=== PATIENT | male | born 1955 | race Caucasian/White ===

== ENCOUNTER 2016-07-30 22:48 | Inpatient (IN) | payer BC ==
[~2016-07-30] VITALS: Ht 172.7 cm; Wt 99.8 kg
[2016-07-30] MEDS ORDERED: DiphenhydrAMINE 50mg/ml Inj IVP ONE (23:15)
[2016-07-30] MEDS ORDERED: Solu-MEDROL 125mg Inj IVP ONE (23:15)
[2016-07-30 23:30] VITALS: BP 102/55
[2016-07-30 23:41] LABS: MEAN CORPUSCULAR HEMOGLOBIN 29.9 PG (27.0-31.0); MEAN CORPUSCULAR HGB CONC 32.2 G/DL (32.0-36.0); MEAN CORPUSCULAR VOLUME 93 FL (80-99); PLATELET COUNT 214 K/UL (150-450); RED BLOOD COUNT 5.12 M/UL (4.70-6.10)
[2016-07-30 23:43] LABS: WHITE BLOOD COUNT 28.2 K/UL (4.8-10.8)
[2016-07-30] MEDS ORDERED: Morphine Sulfate 4mg/ml Inj IVP ONE (23:45)
[2016-07-30] MEDS ORDERED: metroNIDAZOLE 500mg 100 ML IVPB ONE (23:45)
[2016-07-30 23:55] LABS: TROPONIN I < 0.30 ng/mL (<=0.30)
[2016-07-30 23:59] LABS: ACETAMINOPHEN < 10 ug/mL (10-30); ALANINE AMINOTRANSFERASE 34 U/L (3-41); ALBUMIN/GLOBULIN RATIO 1.1 (1.0-2.7); ALCOHOL < 10 mg/dL; ANION GAP 22 (5-15); ASPARTATE AMINO TRANSFERASE 14 U/L (5-40); CALCIUM 7.8 mg/dL (8.6-10.2); CARBON DIOXIDE 16 mEQ/L (20-30); CHLORIDE 99 mEQ/L (98-107); CREATININE 1.2 mg/dL (0.7-1.2); GLOMERULAR FILTRATION RATE > 60 mL/min (>60); HEMOLYSIS 11; POTASSIUM 3.6 mEQ/L (3.4-4.9); SODIUM 137 mEQ/L (135-145); TOTAL PROTEIN 6.1 g/dL (6.6-8.7)
[2016-07-31] VITALS (11 sets, daily range): BP systolic 88–111; BP diastolic 54–61
[2016-07-31 00:07] LABS: REFLEX LACTIC ACID YES OR NO YES
[2016-07-31 00:16] LABS: BILIRUBIN,DIRECT 0.5 mg/dL (0.1-0.3)
[2016-07-31] MEDS ORDERED: Cefepime 1gm vial ONE (00:25)
[2016-07-31] MEDS ORDERED: fentaNYL 100 mcg/2 mL IV ONE (00:30)
[2016-07-31 01:02] LABS: BAND NEUTROPHILS % (MANUAL) 25 % (0-8); BASOPHILS % (MANUAL) 0 % (0-2); EOSINOPHILS % (MANUAL) 0 % (0-3); LYMPHOCYTES % (MANUAL) 1 % (20-45); NEUTROPHILS % (MANUAL) 72 % (45-75); PLATELET ESTIMATE ADEQUATE; PLATELET MORPHOLOGY NORMAL; TOTAL CELLS COUNTED 100
--- NOTE | 2016-07-31 01:58 | Emergency Room Report ---
History of Present Illness General Chief Complaint: General Complaint Source: Patient, Family Member, EMS Present Illness HPI Patient presents EMS after an episode of rigors flushed this dyspnea immediately followed after a second dose of Humira that he gave himself today. EMS felt he was having an anxiety attack. He's been complaining about abdominal pain and was admitted to [facility] last week. Apparently a CT scan was done and was negative. They gave him Solu-Medrol. He also was given an Rx for ciprofloxacin earlier today - but has not taken antibiotics for many months. He's been complaining about pain in his right lower quadrant that's 8-9/10 and constant. It does not radiate. He has been able to move his bowels with some mucous but no blood. No dysuria. No URI sy. Recent hip surgery. No swelling of calves or hemoptysis. Allergies: Coded Allergies: No Known Allergies (Unverified , 07/30/16) Patient History Past Medical History: see triage record Past Surgical History: other - hip surgery Social History: Denies: smoking Social History Narrative Reviewed Nursing Documentation: PMH: Agreed, PSxH: Agreed Nursing Documentation-PMH Past Medical History: No History, Except For Review of Systems All Other Systems: negative except mentioned in HPI Physical Exam Vital Signs Date Time Temp Pulse Resp B/P Pulse Ox O2 Delivery O2 Flow Rate FiO2 07/30/16 22:43 100.0 110 16 116/82 98 Room Air Sp02 EP Interpretation: reviewed, normal General Appearance: well appearing, no apparent distress, GCS 15 Head: normocephalic, atraumatic Eyes: bilateral eye PERRL, bilateral eye normal inspection ENT: dry mucus membranes - braces Neck: supple Respiratory: lungs clear, normal breath sounds Cardiovascular #1: tachycardia Cardiovascular #2: 2+ radial (R) Gastrointestinal: normal inspection, no mass, non-distended, no rebound, abnormal bowel sounds - decreased, tenderness - R lateral and RLQ Musculoskeletal: back normal, gait/station normal, normal range of motion Neurologic: alert, oriented x3, motor strength/tone normal, sensory intact, cerebellar normal, normal gait, speech normal Psychiatric: anxious Skin: warm/dry, other - slightly plethoric - L hip area not tender or with erythema Procedures Critical Care Time Critical Care Time Total time: 30 min bedside evaluation and treatment excludes procedures (EKG). Reason for critical care: SIRS/sepsis, abdominal pain, hypotension, possible anaphylaxis Possible complications: hypotension, hypertension, ME, shock, arrhythmias, metabolic acidosis, end organ damage, respiratory failure. Interventions: fluid bolus, tylenol, antibiotics, solumedrol Course: Patient presented with rigors and hypotension. Immediate evaluation and fluid resuscitation. Responded to fluids, tylenol and antibiotics. Repeated evaluations as patient had episode of rigors here (before definitive treatment begun). Discussion with family regarding etiology. CT evaluated. Patient improved but still with slightly low BP (no longer tachycardic) and minimal abdominal pain. Consultations: nursing staff, EMS, family Performed by: Dr. Angel Tolerated well condition = serious Medical Decision Making Diagnostic Impression: Primary Impression: Sepsis Qualified Codes: A41.9 - Sepsis, unspecified organism Additional Impression: Crohn's colitis Qualified Codes: K50.118 - Crohn's disease of large intestine with other complication ER Course Patient with rigors and fever after shot of Humira. Very complicated patient with recent admission. DDx: bacteremia, allergic reaction, anaphylaxis, exacerbation of Crohn's, vasovagal, postoperative infection (hip - exam against this) amongst others. Emergent treatment initialed with IV hydration/bolus and steroids and antibiotics. Responded with better blood pressure. Patient worked up with blood cultures and other labs. CT ordered. Consideration of epi, but BP better and this appears more infectious with fever. Patient had rigors here - he states this happened just after administration of benadryl IV (was almost exactly like what happened at home). BP was low. ABX had not been started. Bolused. Several re-evaluations. Patient improved after hydration and antibiotics. Repeat lactic acid normal. Clinically improves. Still with pain and BP slightly low (HR decreased). Admit [facility] Dr. Moreno. Laboratory Tests Test 07/30/16 23:00 07/30/16 23:20 07/30/16 23:30 07/31/16 03:30 Urine Opiates Screen Positive (NEGATIVE) H Urine Barbiturates Screen Negative (NEGATIVE) Phencyclidine (PCP) Screen Negative (NEGATIVE) Urine Amphetamines Screen Negative (NEGATIVE) Urine Benzodiazepines Screen Negative (NEGATIVE) Urine Cocaine Screen Negative (NEGATIVE) Urine Marijuana (THC) Screen Negative (NEGATIVE) White Blood Count 28.2 K/UL (4.8-10.8) *H Red Blood Count 5.12 M/UL (4.70-6.10) Hemoglobin 15.3 G/DL (14.2-18.0) Hematocrit 47.5 % (42.0-52.0) Mean Corpuscular Volume 93 FL (80-99) Mean Corpuscular Hemoglobin 29.9 PG (27.0-31.0) Mean Corpuscular Hemoglobin Concent 32.2 G/DL (32.0-36.0) Red Cell Distribution Width 13.0 % (11.6-14.8) Platelet Count 214 K/UL (150-450) Mean Platelet Volume 8.0 FL (6.5-10.1) Neutrophils (%) (Auto) % (45.0-75.0) Lymphocytes (%) (Auto) % (20.0-45.0) Monocytes (%) (Auto) % (1.0-10.0) Eosinophils (%) (Auto) % (0.0-3.0) Basophils (%) (Auto) % (0.0-2.0) Differential Total Cells Counted 100 Neutrophils % (Manual) 72 % (45-75) Lymphocytes % (Manual) 1 % (20-45) L Monocytes % (Manual) 2 % (1-10) Eosinophils % (Manual) 0 % (0-3) Basophils % (Manual) 0 % (0-2) Band Neutrophils 25 % (0-8) H Platelet Estimate Adequate Platelet Morphology Normal Red Blood Cell Morphology Normal Sodium Level 137 mEQ/L (135-145) Potassium Level 3.6 mEQ/L (3.4-4.9) Chloride Level 99 mEQ/L (98-107) Carbon Dioxide Level 16 mEQ/L (20-30) L Anion Gap 22 (5-15) H Blood Urea Nitrogen 21 mg/dL (7-23) Creatinine 1.2 mg/dL (0.7-1.2) Estimate Glomerular Filtration Rate > 60 mL/min (>60) Glucose Level 130 mg/dL (74-106) H Calcium Level 7.8 mg/dL (8.6-10.2) L Total Bilirubin 1.2 mg/dL (0.0-1.2) Direct Bilirubin 0.5 mg/dL (0.1-0.3) H Aspartate Amino Transferase (AST) 14 U/L (5-40) Alanine Aminotransferase (ALT) 34 U/L (3-41) Alkaline Phosphatase 130 U/L (40-129) H Total Creatine Kinase 35 U/L (38-174) L Troponin I < 0.30 ng/mL (<=0.30) Pro-B-Type Natriuretic Peptide 146 pg/mL (0-125) H Total Protein 6.1 g/dL (6.6-8.7) L Albumin 3.3 g/dL (3.5-5.2) L Globulin 2.8 g/dL Albumin/Globulin Ratio 1.1 (1.0-2.7) Thyroid Stimulating Hormone (TSH) 1.680 uIU/mL (0.300-4.500) Salicylates Level < 1 mg/dL (10-30) L Acetaminophen Level < 10 ug/mL (10-30) L Serum Alcohol < 10 mg/dL Lactic Acid Level 3.30 mmol/L (0.66-2.22) H 0.90 mmol/L (0.66-2.22) EKG Diagnostic Results Rate: normal Rhythm: NSR ST Segments: no acute changes Rhythm Strip Diag. Results EP Interpretation: yes Rhythm: NSR, no PVC's, no ectopy Chest X-Ray Diagnostic Results EP Interpretation: Yes Findings: no consolidation, no effusion, no pneumothorax, no acute cardiopulmonary disease Number of Views: 1 CT/MRI/US Diagnostic Results CT/MRI/US Diagnostic Results : Imaging Test Ordered: abd pelvis Impression colitis without appi. Non obstructing stone Last Vital Signs Date Time Temp Pulse Resp B/P Pulse Ox O2 Delivery O2 Flow Rate FiO2 07/31/16 06:30 58 17 88/55 97 Nasal Cannula 2.0 07/31/16 04:30 99.9 Status: improved Disposition: ADMITTED INPATIENT Condition: Serious Referrals: MARITA WESLEY M.D. (PCP) Quan Angel M.D. Jul 31, 2016 01:58
[2016-07-31] MEDS ORDERED: PREDNISONE20 MG ORAL (07:42)
[2016-07-31] MEDS ORDERED: HUMIRA40 MG/0.2 SUBQ (07:42)
[2016-07-31] MEDS ORDERED: GABAPENTIN100 MG ORAL (07:42)
[2016-07-31] MEDS ORDERED: ASPIRIN EC81 MG ORAL (07:42)
--- NOTE | 2016-07-31 09:32 | Diagnostic Imaging Report ---
Indications: Abdominal pain Technique: Continuous helical CT imaging of the abdomen and pelvis was performed with automatic exposure control following administration of nonionic IV contrast only, on a Siemens sensation [address] scanner. Axial, coronal, sagittal images were reconstructed at 5 mm slice thickness. No oral contrast was administered per requesting physician's order, despite no contraindications listed in either submitted clinical data or tech note.. CTDI volume(s): 18 mGy Total DLP: 1125 mGy-cm Findings: Comparison: None Lack of oral contrast limits evaluation of gastrointestinal tract. Multiple small bowel loops distended and fluid-filled with air-fluid levels and some fecalization. Anastomotic sutures/clips encircle the distended small bowel in the left midabdomen. Mild stranding and minimal fluid resides adjacent to a dilated small bowel loop in the right lower quadrant. There is relatively abrupt transition to nondilated small bowel in the same area, though some stranding appears to reside adjacent to one or more nondilated small bowel loops in the well. Distal/terminal ileum nondilated. Appendix short or resected, without acute inflammatory change. Air-fluid levels in colon. Multiple diverticula in left colon. Segment of sigmoid colon poorly distended, further limiting evaluation. No obvious mural thickening, extraluminal gas or loculated fluid collections identified. Circumscribed low-attenuation foci in both renal cortices, some too small to accurately characterize, others compatible with cysts. 3 mm calcific focus interpolar region right kidney. Multiple images through the lower pelvis degraded by artifact from right hip prosthesis. Distended urinary bladder demonstrates apparent mild mural thickening. Focal calcification within prostate gland. Left inguinal hernia contains only fat. Liver, partially contracted gallbladder, pancreas, spleen, adrenal glands, unopacified ureters, seminal vesicles, vascular structures, retroperitoneum, remainder of mesentery, remainder visualized abdominopelvic anatomy unremarkable. Irregular pleural-based linear densities and dependent portions both lung bases. Disc space narrowing with marginal osteophyte formation, vacuum phenomenon, facet hypertrophy lower lumbar spine.. IMPRESSION: Small bowel findings favor enteritis with ileus. Partial obstruction not excludable. No other evidence of acute abdominopelvic disease, with limitation as described. Subtle but potentially significant abnormalities the gastrointestinal tract may be missed. Repeat CT scan with full oral and IV contrast preparation recommended for more complete evaluation, as clinically indicated Nonobstructive right nephrolithiasis Bilateral renal cortical lesions likely all represent cysts, though smaller lesions too small to accurately characterize Questionable previous appendectomy Apparent thickening of urinary bladder wall--hypertrophy versus chronic cystitis Previous right hip arthroplasty Fat-containing left inguinal hernia Degenerative spondylosis Pulmonary bibasal subsegmental atelectasis This correlates with [facility] preliminary report.
[2016-07-31] MEDS ORDERED: Norco 5mg/325mg tab ORAL PRN ×2 (10:45→22:45)
[2016-07-31] MEDS ORDERED: PredniSONE 20mg tab ORAL SCH (11:15)
--- NOTE | 2016-07-31 11:38 | Consultation ---
History of Present Illness General Date patient seen: Jul 31, 2016 Chief Complaint: fever Referring physician: Dr Moreno Reason for Consultation: anaphyolaxic reaction Present Illness HPI 61 year old male with hx of crohn disease for > 25 years with mutliple previous GI surgeries, on Anabel, he was having some lower abdominal pain and some possible lower grade temperature for the last few days, then he presents EMS after an episode of rigors flushed skin and dyspnea immediately followed after a second dose of Humira that he gave himself today. Apparently a CT scan was done and was negative. They gave him Solu-Medrol and penicillin. He also was given an Rx for ciprofloxacin earlier - but has not taken antibiotics for many months. He's been complaining about pain in his right lower quadrant that's 8-9 10 and constant. Pt had leukocytosis and low grade temperature and admitted to [facility] for anaphylactic shock. Currently he is calmer and only c/o of lower abdominal pain. Allergies: Coded Allergies: No Known Allergies (Unverified , 07/30/16) Medication History Scheduled Adalimumab (Humira), 40 MG SUBQ Q14D, (Reported) Aspirin Ec* (Aspirin Ec*), 81 MG ORAL DAILY, (Reported) Gabapentin* (Gabapentin*), MG ORAL THREE TIMES A DAY, (Reported) Prednisone* (Prednisone*), 40 MG ORAL DAILY, (Reported) Patient History Healthcare decision maker Resuscitation status Full Code Advanced Directive on File Past Medical/Surgical History Past Medical/Surgical History: (1) Crohn's colitis Review of Systems All Other Systems: negative except mentioned in HPI Physical Exam General Appearance: WD/WN Lines, tubes and drains: peripheral HEENT: normocephalic, atraumatic Neck: non-tender, normal alignment Respiratory/Chest: chest wall non-tender, lungs clear Cardiovascular/Chest: normal peripheral pulses, normal rate Abdomen: normal bowel sounds, non tender Genitourinary/Rectal: normal genital exam, normal rectal exam Last 24 Hour Vital Signs Date Time Temp Pulse Resp B/P Pulse Ox O2 Delivery O2 Flow Rate FiO2 07/31/16 07:48 98.0 56 17 /55 97 Nasal Cannula 2.0 07/31/16 07:43 98.0 56 17 55 97 Nasal Cannula 2.0 07/31/16 06:30 58 17 88/55 97 Nasal Cannula 2.0 07/31/16 04:30 99.9 67 19 89/54 97 Nasal Cannula 2.0 07/31/16 02:30 100.0 71 22 99/60 95 Nasal Cannula 2.0 07/31/16 01:37 99.9 07/31/16 01:35 99.0 07/31/16 01:30 99.9 83 24 105/60 95 Nasal Cannula 2.0 07/31/16 01:07 99.9 07/30/16 23:30 99.9 95 24 102/55 96 Room Air 07/30/16 22:43 100.0 110 16 116/82 98 Room Air Intake and Output 07/30/16 07/31/16 19:00 07:00 Intake Total 2150 ml Output Total 400 ml Balance 1750 ml Intake IV Total 2150 ml Other 0 ml Output Urine Total 400 ml Laboratory Tests Test 07/30/16 23:00 07/30/16 23:20 07/30/16 23:30 07/31/16 03:30 Urine Opiates Screen Positive (NEGATIVE) H Urine Barbiturates Screen Negative (NEGATIVE) Phencyclidine (PCP) Screen Negative (NEGATIVE) Urine Amphetamines Screen Negative (NEGATIVE) Urine Benzodiazepines Screen Negative (NEGATIVE) Urine Cocaine Screen Negative (NEGATIVE) Urine Marijuana (THC) Screen Negative (NEGATIVE) White Blood Count 28.2 K/UL (4.8-10.8) *H Red Blood Count 5.12 M/UL (4.70-6.10) Hemoglobin 15.3 G/DL (14.2-18.0) Hematocrit 47.5 % (42.0-52.0) Mean Corpuscular Volume 93 FL (80-99) Mean Corpuscular Hemoglobin 29.9 PG (27.0-31.0) Mean Corpuscular Hemoglobin Concent 32.2 G/DL (32.0-36.0) Red Cell Distribution Width 13.0 % (11.6-14.8) Platelet Count 214 K/UL (150-450) Mean Platelet Volume 8.0 FL (6.5-10.1) Neutrophils (%) (Auto) % (45.0-75.0) Lymphocytes (%) (Auto) % (20.0-45.0) Monocytes (%) (Auto) % (1.0-10.0) Eosinophils (%) (Auto) % (0.0-3.0) Basophils (%) (Auto) % (0.0-2.0) Differential Total Cells Counted 100 Neutrophils % (Manual) 72 % (45-75) Lymphocytes % (Manual) 1 % (20-45) L Monocytes % (Manual) 2 % (1-10) Eosinophils % (Manual) 0 % (0-3) Basophils % (Manual) 0 % (0-2) Band Neutrophils 25 % (0-8) H Platelet Estimate Adequate Platelet Morphology Normal Red Blood Cell Morphology Normal Sodium Level 137 mEQ/L (135-145) Potassium Level 3.6 mEQ/L (3.4-4.9) Chloride Level 99 mEQ/L (98-107) Carbon Dioxide Level 16 mEQ/L (20-30) L Anion Gap 22 (5-15) H Blood Urea Nitrogen 21 mg/dL (7-23) Creatinine 1.2 mg/dL (0.7-1.2) Estimat Glomerular Filtration Rate > 60 mL/min (>60) Glucose Level 130 mg/dL (74-106) H Calcium Level 7.8 mg/dL (8.6-10.2) L Total Bilirubin 1.2 mg/dL (0.0-1.2) Direct Bilirubin 0.5 mg/dL (0.1-0.3) H Aspartate Amino Transf (AST/SGOT) 14 U/L (5-40) Alanine Aminotransferase (ALT/SGPT) 34 U/L (3-41) Alkaline Phosphatase 130 U/L (40-129) H Total Creatine Kinase 35 U/L (38-174) L Troponin I < 0.30 ng/mL (<=0.30) Pro-B-Type Natriuretic Peptide 146 pg/mL (0-125) H Total Protein 6.1 g/dL (6.6-8.7) L Albumin 3.3 g/dL (3.5-5.2) L Globulin 2.8 g/dL Albumin/Globulin Ratio 1.1 (1.0-2.7) Thyroid Stimulating Hormone (TSH) 1.680 uIU/mL (0.300-4.500) Salicylates Level < 1 mg/dL (10-30) L Acetaminophen Level < 10 ug/mL (10-30) L Serum Alcohol < 10 mg/dL Lactic Acid Level 3.30 mmol/L (0.66-2.22) H 0.90 mmol/L (0.66-2.22) Height (Feet): 5 Height (Inches): 8.00 Weight (Pounds): 220 Medications Current Medications Medications (Trade) Dose Ordered Sig/Sukhjinder Route PRN Reason Start Time Stop Time Status Last Admin Dose Admin Acetaminophen/ Hydrocodone Bitart (Sartell 5/325) 1 tab Q6H PRN ORAL FOR PAIN 1-10 07/31/16 10:45 08/07/16 10:44 Aspirin (ASA) 81 mg DAILY NG 08/01/16 12:00 08/31/16 11:59 Piperacillin Sod/ Tazobactam Sod/ Dextrose (Zosyn/D5W 100ml) 100 ml @ 25 mls/hr EVERY 8 HOURS IVPB 07/31/16 14:00 08/05/16 13:59 UNV Prednisone 40 mg 40 mg DAILY ORAL 07/31/16 11:15 08/30/16 11:14 Sodium Chloride (Sodium Chloride 1000ml bag) 1,000 ml @ 100 mls/hr Q10H IV 07/31/16 11:15 08/30/16 11:14 Assessment/Plan Problem List: (1) Anaphylactic reaction ICD Codes: T78.2XXA - Anaphylactic shock, unspecified, initial encounter SNOMED: 96232666 Qualifiers: Qualified Codes: T78.2XXA - Anaphylactic shock, unspecified, initial encounter (2) Sepsis ICD Codes: A41.9 - Sepsis, unspecified organism SNOMED: 90089793 Qualifiers: Qualified Codes: A41.9 - Sepsis, unspecified organism (3) Enteritis ICD Codes: K52.9 - Noninfective gastroenteritis and colitis, unspecified SNOMED: 64555897 (4) Crohn's colitis ICD Codes: K50.10 - Crohn's disease of large intestine without complications SNOMED: 24295978 Qualifiers: Qualified Codes: K50.112 - Crohn's disease of large intestine with intestinal obstruction Assessment/Plan IV fluids iv antibiotics GI and ID consult check cultures check wbc dvt prohylaxis ALICIA CHAVARRIA Jul 31, 2016 11:38
[2016-07-31] MEDS ORDERED: Lomotil 2.5mg tab ORAL PRN ×2 (11:45→17:45)
[2016-07-31] MEDS ORDERED: LORazepam 1mg tab ORAL PRN ×2 (11:45→19:45)
[2016-07-31] MEDS ORDERED: Morphine Sulfate 2mg/ml Inj IVP PRN ×3 (11:45→18:30)
[2016-07-31 11:55] LABS: MEAN CORPUSCULAR HGB CONC 33.2 G/DL (32.0-36.0); MEAN CORPUSCULAR VOLUME 91 FL (80-99); MEAN PLATELET VOLUME 9.7 FL (6.5-10.1); PLATELET COUNT 140 K/UL (150-450); RED BLOOD COUNT 4.01 M/UL (4.70-6.10); RED CELL DISTRIBUTION WIDTH 12.9 % (11.6-14.8); WHITE BLOOD COUNT 18.4 K/UL (4.8-10.8)
[2016-07-31 12:10] LABS: ALANINE AMINOTRANSFERASE 29 U/L (3-41); ALBUMIN/GLOBULIN RATIO 0.9 (1.0-2.7); ANION GAP 12 (5-15); ASPARTATE AMINO TRANSFERASE 15 U/L (5-40); CALCIUM 7.1 mg/dL (8.6-10.2); CARBON DIOXIDE 20 mEQ/L (20-30); CHLORIDE 110 mEQ/L (98-107); CREATININE 0.9 mg/dL (0.7-1.2); GLOMERULAR FILTRATION RATE > 60 mL/min (>60); HEMOLYSIS 3; MAGNESIUM 1.9 mg/dL (1.7-2.5); PHOSPHORUS 2.7 mg/dL (2.5-4.8); POTASSIUM 3.7 mEQ/L (3.4-4.9); SODIUM 142 mEQ/L (135-145); TOTAL PROTEIN 5.2 g/dL (6.6-8.7)
[2016-07-31 12:37] LABS: BAND NEUTROPHILS % (MANUAL) 2 % (0-8); LYMPHOCYTES % (MANUAL) 3 % (20-45); NEUTROPHILS % (MANUAL) 89 % (45-75); TOTAL CELLS COUNTED 100
[2016-07-31 12:38] LABS: BASOPHILS % (MANUAL) 0 % (0-2); EOSINOPHILS % (MANUAL) 0 % (0-3); PLATELET ESTIMATE ADEQUATE; PLATELET MORPHOLOGY NORMAL
--- NOTE | 2016-07-31 13:40 | Consultation ---
Consult Note Consult Note ID CONSULT: Mikaela# [id number] Assessment/Plan ASSESSMENT: 61 y/o male with: // Severe sepsis - resolved lactic acidosis, cultures pending. Risk atypical infection on biologics // Possible ADR humira // Cough r/o bronchitis, PNA - CXR pending - CT: Pulmonary bibasal subsegmental atelectasis // r/o UTI, bacteremia // h/o repeatedly negative QFT TB gold // Leukocytosis - improved // Low grade fever - improved // Crohn's disease, on humira ?exacerbated - CT A/P: Small bowel findings favor enteritis with ileus. Partial obstruction not excludable. No other evidence of acute abdominopelvic disease // Right non-obstructive nephrolithiasis // SP right DONAVON ~4 weeks - no evidence of infection // NKDA // Full Code PLAN: - continue empiric zosyn d# 1 - check coccidioides serology, UA, UCx - f/u cultures - monitor CBC, temperatures - monitor BMP - monitor CXR - GI eval Thanks! Will follow DARLIN HUNG Jul 31, 2016 13:39
--- NOTE | 2016-07-31 16:52 | GI Initial Consult Note ---
History of Present Illness General Date patient seen: Jul 31, 2016 Time patient seen: 13:00 Reason for Hospitalization: General Complaint Referring physician: Dr oMreno Reason for Consultation: anaphyolaxic reaction Present Illness HPI Patient presents EMS after an episode of rigors flushed this dyspnea immediately followed after a second dose of Humira that he gave himself today. He's been complaining about abdominal pain and was admitted to seizures last week. Apparently a CT scan was done and was negative. They gave him Solu- Medrol and penicillin. He also was given an Rx for ciprofloxacin earlier - but has not taken antibiotics for many months. He's been complaining about pain in his right lower quadrant that's 8-9/10 and constant. It does not radiate. GI NOTE: Initial HPI as noted above. GI consulted for anaphylactic reaction due to increased second dose of Crohn's medication. Pt seen on floor, awake A& Ox 4 NAD with no general symptoms or complaints at this time. This is a patient with history of Crohn's disease, follow by Dr. Mesa at [facility]. According to the patient he has been taking Humira for his Crohn's for the past 3 years. However, during this episode the patient was instructed to take a second dose of Humira which resulted as previously noted. CT shows enteritis with ileus, however, pt states he has been able to have BM and is passing flatus. Home Meds Reported Medications Gabapentin* (GABAPENTIN*) 100 Mg Capsule, MG ORAL THREE TIMES A DAY, CAP 07/31/16 Aspirin Ec* (ASPIRIN EC*) 81 Mg Tablet.dr, 81 MG ORAL DAILY, TAB 07/31/16 Prednisone* (PREDNISONE*) 20 Mg Tablet, 40 MG ORAL DAILY, TAB 07/31/16 Adalimumab (HUMIRA) 40 Mg/0.8 Ml Pen.ij.kit, 40 MG SUBQ Q14D, KIT 07/31/16 Med list reviewed/reconciled: Yes Allergies: Coded Allergies: No Known Allergies (Unverified , 07/30/16) Patient History History Provided By: Patient PMH Narrative Past Medical/Surgical History: (1) Crohn's colitis Social History: Denies: alcohol use, drug use, other, smoking Review of Systems All Other Systems: negative except mentioned in HPI Physical Exam Vital Signs Date Time Temp Pulse Resp B/P Pulse Ox O2 Delivery O2 Flow Rate FiO2 07/30/16 22:43 100.0 110 16 116/82 98 Room Air 07/31/16 01:30 2.0 Sp02 EP Interpretation: reviewed Labs Laboratory Tests Test 07/30/16 23:00 07/30/16 23:20 07/30/16 23:30 07/31/16 03:30 Urine Opiates Screen Positive (NEGATIVE) H Urine Barbiturates Screen Negative (NEGATIVE) Phencyclidine (PCP) Screen Negative (NEGATIVE) Urine Amphetamines Screen Negative (NEGATIVE) Urine Benzodiazepines Screen Negative (NEGATIVE) Urine Cocaine Screen Negative (NEGATIVE) Urine Marijuana (THC) Screen Negative (NEGATIVE) White Blood Count 28.2 K/UL (4.8-10.8) *H Red Blood Count 5.12 M/UL (4.70-6.10) Hemoglobin 15.3 G/DL (14.2-18.0) Hematocrit 47.5 % (42.0-52.0) Mean Corpuscular Volume 93 FL (80-99) Mean Corpuscular Hemoglobin 29.9 PG (27.0-31.0) Mean Corpuscular Hemoglobin Concent 32.2 G/DL (32.0-36.0) Red Cell Distribution Width 13.0 % (11.6-14.8) Platelet Count 214 K/UL (150-450) Mean Platelet Volume 8.0 FL (6.5-10.1) Neutrophils (%) (Auto) % (45.0-75.0) Lymphocytes (%) (Auto) % (20.0-45.0) Monocytes (%) (Auto) % (1.0-10.0) Eosinophils (%) (Auto) % (0.0-3.0) Basophils (%) (Auto) % (0.0-2.0) Differential Total Cells Counted 100 Neutrophils % (Manual) 72 % (45-75) Lymphocytes % (Manual) 1 % (20-45) L Monocytes % (Manual) 2 % (1-10) Eosinophils % (Manual) 0 % (0-3) Basophils % (Manual) 0 % (0-2) Band Neutrophils 25 % (0-8) H Platelet Estimate Adequate Platelet Morphology Normal Red Blood Cell Morphology Normal Sodium Level 137 mEQ/L (135-145) Potassium Level 3.6 mEQ/L (3.4-4.9) Chloride Level 99 mEQ/L (98-107) Carbon Dioxide Level 16 mEQ/L (20-30) L Anion Gap 22 (5-15) H Blood Urea Nitrogen 21 mg/dL (7-23) Creatinine 1.2 mg/dL (0.7-1.2) Estimat Glomerular Filtration Rate > 60 mL/min (>60) Glucose Level 130 mg/dL (74-106) H Calcium Level 7.8 mg/dL (8.6-10.2) L Total Bilirubin 1.2 mg/dL (0.0-1.2) Direct Bilirubin 0.5 mg/dL (0.1-0.3) H Aspartate Amino Transf (AST/SGOT) 14 U/L (5-40) Alanine Aminotransferase (ALT/SGPT) 34 U/L (3-41) Alkaline Phosphatase 130 U/L (40-129) H Total Creatine Kinase 35 U/L (38-174) L Troponin I < 0.30 ng/mL (<=0.30) Pro-B-Type Natriuretic Peptide 146 pg/mL (0-125) H Total Protein 6.1 g/dL (6.6-8.7) L Albumin 3.3 g/dL (3.5-5.2) L Globulin 2.8 g/dL Albumin/Globulin Ratio 1.1 (1.0-2.7) Thyroid Stimulating Hormone (TSH) 1.680 uIU/mL (0.300-4.500) Salicylates Level < 1 mg/dL (10-30) L Acetaminophen Level < 10 ug/mL (10-30) L Serum Alcohol < 10 mg/dL Lactic Acid Level 3.30 mmol/L (0.66-2.22) H 0.90 mmol/L (0.66-2.22) Test 07/31/16 11:20 White Blood Count 18.4 K/UL (4.8-10.8) H Red Blood Count 4.01 M/UL (4.70-6.10) L Hemoglobin 12.0 G/DL (14.2-18.0) L Hematocrit 36.3 % (42.0-52.0) L Mean Corpuscular Volume 91 FL (80-99) Mean Corpuscular Hemoglobin 30.0 PG (27.0-31.0) Mean Corpuscular Hemoglobin Concent 33.2 G/DL (32.0-36.0) Red Cell Distribution Width 12.9 % (11.6-14.8) Platelet Count 140 K/UL (150-450) L Mean Platelet Volume 9.7 FL (6.5-10.1) Neutrophils (%) (Auto) % (45.0-75.0) Lymphocytes (%) (Auto) % (20.0-45.0) Monocytes (%) (Auto) % (1.0-10.0) Eosinophils (%) (Auto) % (0.0-3.0) Basophils (%) (Auto) % (0.0-2.0) Differential Total Cells Counted 100 Neutrophils % (Manual) 89 % (45-75) H Lymphocytes % (Manual) 3 % (20-45) L Monocytes % (Manual) 6 % (1-10) Eosinophils % (Manual) 0 % (0-3) Basophils % (Manual) 0 % (0-2) Band Neutrophils 2 % (0-8) Platelet Estimate Adequate Platelet Morphology Normal Red Blood Cell Morphology Normal Sodium Level 142 mEQ/L (135-145) Potassium Level 3.7 mEQ/L (3.4-4.9) Chloride Level 110 mEQ/L (98-107) H Carbon Dioxide Level 20 mEQ/L (20-30) Anion Gap 12 (5-15) Blood Urea Nitrogen 23 mg/dL (7-23) Creatinine 0.9 mg/dL (0.7-1.2) Estimat Glomerular Filtration Rate > 60 mL/min (>60) Glucose Level 137 mg/dL (74-106) H Calcium Level 7.1 mg/dL (8.6-10.2) L Phosphorus Level 2.7 mg/dL (2.5-4.8) Magnesium Level 1.9 mg/dL (1.7-2.5) Total Bilirubin 0.4 mg/dL (0.0-1.2) Aspartate Amino Transf (AST/SGOT) 15 U/L (5-40) Alanine Aminotransferase (ALT/SGPT) 29 U/L (3-41) Alkaline Phosphatase 66 U/L (40-129) Total Protein 5.2 g/dL (6.6-8.7) L Albumin 2.5 g/dL (3.5-5.2) L Globulin 2.7 g/dL Albumin/Globulin Ratio 0.9 (1.0-2.7) L General Appearance: well appearing, no apparent distress, alert Head: normocephalic EENT: normal ENT inspection Neck: supple Respiratory: normal breath sounds, no respiratory distress Cardiovascular: normal rate Gastrointestinal: normal inspection, non tender, soft, normal bowel sounds Rectal: normal exam Genitourinary: no CVA tenderness Musculoskeletal: back normal Neurologic: normal inspection, alert, oriented x3, responsive Psychiatric: normal inspection, judgement/insight normal, memory normal Skin: normal inspection, normal color, no rash Lymphatic: normal inspection, no adenopathy Current Medications Current Medications Medications (Trade) Dose Ordered Sig/Sukhjinder Route PRN Reason Start Time Stop Time Status Last Admin Dose Admin Acetaminophen (Tylenol) 650 mg Q4H PRN ORAL FEVER 07/31/16 11:45 08/30/16 11:44 Acetaminophen (Tylenol) 650 mg Q4H PRN ORAL Mild Pain (Pain Scale 1-3) 07/31/16 11:45 08/30/16 11:44 Acetaminophen/ Hydrocodone Bitart ([place] 5/325) 1 tab Q6H PRN ORAL FOR PAIN 1-10 07/31/16 10:45 08/07/16 10:44 Aspirin (ASA) 81 mg DAILY NG 08/01/16 12:00 08/31/16 11:59 Diphenhydramine HCl (Benadryl) 25 mg Q6H PRN ORAL Itching/Pruritis 07/31/16 11:45 08/30/16 11:44 Diphenoxylate HCl/ Atropine (Lomotil) 2.5 mg Q6H PRN ORAL Diarrhea 07/31/16 11:45 08/30/16 11:44 Lorazepam (Ativan) 1 mg Q4H PRN ORAL For Anxiety 07/31/16 11:45 08/07/16 11:44 Morphine Sulfate (Morphine Sulfate) 2 mg Q6H PRN IVP 4-6 PAIN UNRESPONSIVE TO NORCO 07/31/16 12:28 08/07/16 11:44 Ondansetron HCl (Zofran) 4 mg Q6H PRN IVP Nausea & Vomiting 07/31/16 11:45 08/30/16 11:44 Piperacillin Sod/ Tazobactam Sod/ Dextrose (Zosyn/D5W 100ml) 100 ml @ 25 mls/hr EVERY 8 HOURS IVPB 07/31/16 14:00 08/05/16 13:59 07/31/16 14:10 Prednisone 40 mg 40 mg DAILY ORAL 07/31/16 11:15 08/30/16 11:14 07/31/16 12:10 Sodium Chloride (Sodium Chloride 1000ml bag) 1,000 ml @ 100 mls/hr Q10H IV 07/31/16 11:15 08/30/16 11:14 07/31/16 12:09 Temazepam (Restoril) 15 mg HSPRN PRN ORAL Insomnia 07/31/16 11:45 08/07/16 11:44 GI: Plan Problems: (1) Crohn's colitis (2) Enteritis (3) Anaphylactic reaction (4) Sepsis Plan AP CT >> enteritis with ileus >> pt reported to have BM and passing gas diarrhea >> crohn's flare Humira given once every two weeks. -------- patient will not require any GI procedures at this time symptomatic treatment pain mgmt abx per ID H2 fu labs Discussed with Dr. Olmedo. Thank you for referring this patient, we will follow. Lucía Ruiz N.P. Jul 31, 2016 16:52
[2016-07-31 17:00] LABS: APPEARANCE,URINE CLEAR; KETONES,URINE 1+ (NEGATIVE); LEUKOCYTE ESTERASE ,URINE 1+ (NEGATIVE); NITRITE,URINE NEGATIVE (NEGATIVE); PH,URINE 6 (4.5-8.0); PROTEIN,URINE 2+ (NEGATIVE); UROBILINOGEN,URINE NORMAL MG/DL (0.0-1.0)
[2016-07-31 17:51] LABS: AMORPHOUS SEDIMENT,UR FEW /LPF; BACTERIA,URINE FEW /HPF; RBC,URINE 0-2 /HPF (0 - 0)
--- NOTE | 2016-07-31 18:36 | History & Physical ---
History and Physical History & Physicial Dictated for Int Med-Dr Moreno no. [id number]. LINA COVINGTON Jul 31, 2016 18:36
--- NOTE | 2016-07-31 20:13 | Cardiology Report ---
APPROVED REPORT EKG Measurement Heart [id number] Normal sinus rhythm Nonspecific ST abnormality Abnormal ECG
--- NOTE | 2016-07-31 21:48 | Consultation ---
DATE OF CONSULTATION: 07/31/2016 INFECTIOUS DISEASE CONSULTATION REQUESTING PHYSICIAN: Bakari Moreno M.D. REASON FOR CONSULTATION: Severe sepsis. HISTORY OF PRESENT ILLNESS: This is a 61-year-old male with a history of Crohn disease, on Humira, admitted on 07/30/2015 with abdominal pain and flushing after taking an extra dose of Humira as directed by his gastrointestinal physician. A CT of the abdomen and pelvis shows small bowel findings favoring enteritis with ileus, partial obstruction not excludable. No other evidence of acute abdominal pelvic disease. Also, complains of nonproductive cough. Denies headache, congestion, or dysuria. He meets severe sepsis criteria. White blood cell count is trending down. Lactic acidosis has resolved and low-grade fever at 100. Blood culture is pending. He has been started on empiric Zosyn. ID now consulted to assist in management. PAST MEDICAL HISTORY: 1. Crohn disease, on Humira. 2. Kidney stones. 3. Left inguinal hernia. PAST SURGICAL HISTORY: 1. Right total hip arthroplasty. 2. Multiple bowel surgeries. FAMILY HISTORY: Noncontributory. SOCIAL HISTORY: Denies tobacco, alcohol, or illicit drug abuse. ALLERGIES: No known drug allergies. MEDICATIONS: 1. Zosyn. 2. Prednisone. 3. Aspirin. 4. Outpatient Humira. REVIEW OF SYSTEMS: As per history of present illness. Ten systems reviewed, all pertinent positives and negatives noted. PHYSICAL EXAMINATION: VITAL SIGNS: Maximum temperature of 100 degrees, blood pressure 91/59, heart rate in the 50s, respiratory rate 20, and saturating 99% on room air. GENERAL: No apparent distress, nontoxic appearing. HEENT: No thrush. CARDIOVASCULAR: Regular rate and rhythm. No murmurs. PULMONARY: Clear to auscultation bilaterally. ABDOMEN: Bowel sounds present. Soft. Mild distention and tenderness to deep palpation. EXTREMITIES: No edema. SKIN: No rash. NEUROLOGICAL: Alert and oriented x3. Nonfocal. LABORATORY DATA: White blood cell count 18.4, decreased from 28.2 with left shift; hemoglobin 12, and platelets 140,000. Sodium 142, potassium 3.7, chloride 110, bicarbonate 20, BUN 23, and creatinine 0.9. Lactic acid 3.3, decreased to 0.9. Liver function tests within normal limits. Troponin negative x1. BNP 146. Urine drug screen positive for opiates. MICROBIOLOGY: A 07/30/2016 blood culture pending. IMAGIN. A 07/30/2016 chest x-ray pending. 2. A 07/31/2016 CT of the abdomen and pelvis with small bowel findings favoring enteritis with ileus. Partial obstruction not excludable. No other evidence of acute abdominal pelvic disease. Nonobstructive right nephrolithiasis. Bilateral renal cortical lesions, likely all represent cysts. Previous right hip arthroplasty. Fat containing left inguinal hernia. ASSESSMENT: 1. Severe sepsis with lactic acidosis, now resolved. Cultures are pending. Risk of atypical infections on biologics. 2. Possible adverse drug reaction to Humira. 3. Cough, rule out bronchitis and pneumonia. Chest x-ray is pending. the patient's CAT scan showed bibasilar atelectasis. 4. Rule out urinary tract infection and bacteremia. 5. 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 6. Leukocytosis, improved. 7. Low-grade fever, improved. 8. Crohn's disease, on Humira, question exacerbated. CT as above. 9. Right nonobstructive nephrolithiasis. 10. Status post right total hip arthroplasty approximately four weeks ago with no evidence of infection. 11. No known drug allergies. 12. Full Code. PLAN: 1. Continue empiric Zosyn day #1. 2. Check Coccidioides serology, urinalysis, and urine culture. 3. Follow up blood cultures. 4. Monitor CBC and temperatures. 5. Monitor BMP. 6. Monitor chest x-ray. 7. Gastrointestinal evaluation. Thank you. We will follow. Osmin Valdez M.D. DR: MOISES JOB#: [id number] CC: Bakari Moreno M.D.; Fax#: [phone] Blanc M.D; Fax#: [phone]
--- NOTE | 2016-07-31 23:27 | History and Physical Report ---
DATE OF ADMISSION: 07/30/2016 CHIEF COMPLAINT: The patient is a 61-year-old white male, who presents with chief complaint of hot flashes and chills. HISTORY OF PRESENT ILLNESS: The patient has a history of Crohn's disease. The patient states his dose of Humira was just increased to two injections daily. The patient states after his second injection Humira he began to have hot flashes. The patient also had chills. The patient denied shortness of breath or throat swelling. The patient presented to [facility]. The patient was initially admitted for possible anaphylaxis to Humira. The patient was found to have lactic acidosis. The patient was also found to have leukocytosis. The patient was admitted for lactic acidosis and leukocytosis to rule out sepsis. PAST MEDICAL HISTORY: Significant for Crohn's disease. PAST SURGICAL HISTORY: Significant for bowel resection x2 secondary to Crohn disease. CURRENT MEDICATIONS: 1. Humira 40 mg subcutaneous q.2 weeks. 2. Aspirin 81 mg one tablet p.o. daily. 3. Gabapentin 100 mg one tablet p.o. three times daily. 4. Prednisone 40 mg one tablet p.o. daily. ALLERGIES: No known drug allergies. 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 The patient denies tobacco use. The patient admits to social alcohol use. REVIEW OF SYSTEMS: Constitutional: The patient complains of subjective fevers and chills and hot flashes as above. The patient denies weight loss or weight gain. HEENT: The patient denies ear or throat pain. The patient denies any headache. Cardiovascular: The patient denies palpitations or chest pain. Chest: The patient denies wheezing or shortness of breath. Abdomen: The patient denies nausea, vomiting, diarrhea, or constipation. Genitourinary: The patient denies dysuria or increased frequency of urination. Neuromuscular: The patient denies seizures or generalized weakness. PHYSICAL EXAMINATION: VITAL SIGNS: Temperature 98.0, respirations 17, pulse 56, blood pressure 91/55. GENERAL: The patient is well developed and well nourished slightly obese white male, in no apparent distress. HEENT: Eyes, pupils are equal and responsive to light and accommodation. Extraocular movements are intact. NECK: Supple. No lymphadenopathy. CHEST: Lungs are clear to auscultation bilaterally without wheezes or rales. CARDIOVASCULAR: Regular rhythm and rate. S1 and S2 normal without murmurs, rubs, or gallops. ABDOMEN: Soft, nontender, and nondistended. Positive bowel sounds. No evidence of hepatosplenomegaly. Currently, no rebound or guarding. EXTREMITIES: Negative for clubbing, cyanosis, or or edema. RECTAL: Refused. GENITALIA: Refused. NEUROLOGIC: Cranial nerves II through XII are grossly intact without focal deficits. Motor strength is 5/5 bilaterally. Deep tendon reflexes 2+ plantar. LABORATORY AND DIAGNOSTIC DATA: WBC elevated at 28.2, hemoglobin 15.2, hematocrit 47.5, platelets 214,000. Sodium 137, potassium 3.6, chloride 99, CO2 16, BUN 29, creatinine 1.2, glucose 130. Lactic acid was elevated. ASSESSMENT: This is a 61-year-old white male: 1. Lactic acidosis. 2. Leukocytosis. 3. Crohn disease. TREATMENT: 1. Lactic acidosis/leukocytosis, possibility of sepsis is high in a patient receiving Humira. The patient has been started empirically on Zosyn. An Infectious Disease consultation is pending with Dr. Osmin Valdez. Blood cultures are pending. We will follow recommendation of Infectious Disease. 2. Crohn disease. Gastroenterology consultation obtained with Dr. Gerardo Olmedo. Continue prednisone as above. Hold Humira for now. Elvis Avina M.D. DR: Mary JOB#: [id number] CC:
[2016-08-01] VITALS: BP 94/55
[2016-08-01 04:00] VITALS: BP 94/54
[2016-08-01 07:22] LABS: MEAN CORPUSCULAR HEMOGLOBIN 30.1 PG (27.0-31.0); MEAN CORPUSCULAR VOLUME 91 FL (80-99); PLATELET COUNT 120 K/UL (150-450); RED BLOOD COUNT 3.88 M/UL (4.70-6.10); RED CELL DISTRIBUTION WIDTH 12.9 % (11.6-14.8)
[2016-08-01 07:24] LABS: ALANINE AMINOTRANSFERASE 26 U/L (3-41); ALBUMIN/GLOBULIN RATIO 0.8 (1.0-2.7); ANION GAP 8 (5-15); ASPARTATE AMINO TRANSFERASE 16 U/L (5-40); CALCIUM 7.2 mg/dL (8.6-10.2); CARBON DIOXIDE 24 mEQ/L (20-30); CHLORIDE 108 mEQ/L (98-107); GLOMERULAR FILTRATION RATE > 60 mL/min (>60); HEMOLYSIS 6; MAGNESIUM 2.1 mg/dL (1.7-2.5); PHOSPHORUS 2.3 mg/dL (2.5-4.8); POTASSIUM 4.3 mEQ/L (3.4-4.9); SODIUM 140 mEQ/L (135-145); TOTAL PROTEIN 4.9 g/dL (6.6-8.7)
[2016-08-01 07:55] LABS: BAND NEUTROPHILS % (MANUAL) 0 % (0-8); BASOPHILS % (MANUAL) 0 % (0-2); EOSINOPHILS % (MANUAL) 0 % (0-3); LYMPHOCYTES % (MANUAL) 7 % (20-45); NEUTROPHILS % (MANUAL) 88 % (45-75); PLATELET ESTIMATE DECREASED; PLATELET MORPHOLOGY NORMAL; TOTAL CELLS COUNTED 100
[2016-08-01 08:00] VITALS: BP 109/78
[2016-08-01] MEDS: Aspirin Baby 81mg NG SCH (09:01)
[2016-08-01] MEDS: PredniSONE 20mg tab ORAL SCH (09:02)
[2016-08-01] MEDS ORDERED: Aspirin Baby 81mg NG SCH (12:00)
--- NOTE | 2016-08-01 12:01 | GI Progress Note ---
Assessment/Plan Problems: (1) Crohn's colitis ICD Codes: K50.10 - Crohn's disease of large intestine without complications SNOMED: 94899594 Qualifiers: Qualified Codes: K50.118 - Crohn's disease of large intestine with other complication (2) Anaphylactic reaction ICD Codes: T78.2XXA - Anaphylactic shock, unspecified, initial encounter SNOMED: 30573793 Qualifiers: Qualified Codes: T78.2XXA - Anaphylactic shock, unspecified, initial encounter (3) Enteritis ICD Codes: K52.9 - Noninfective gastroenteritis and colitis, unspecified SNOMED: [id number] Status: stable, progressing Status Narrative Discussed with Dr. Olmedo. Assessment/Plan AP CT >> enteritis with ileus >> pt reported to have BM and passing gas diarrhea >> crohn's flare Crohn's medication Humira given once every two weeks. -------- symptomatic treatment pain mgmt abx per ID regular diet H2 fu labs Subjective Gastrointestinal/Abdominal: Reports: abdominal pain - improved Objective Last 24 Hour Vital Signs Date Time Temp Pulse Resp B/P Pulse Ox O2 Delivery O2 Flow Rate FiO2 08/01/16 08:00 97.0 51 18 109/78 97 Room Air 08/01/16 04:00 97.1 52 17 94/54 95 Room Air 08/01/16 00:00 98.1 51 17 94/55 95 Room Air 07/31/16 20:00 95.0 51 14 90/61 95 Room Air 07/31/16 18:50 98.2 57 18 98/61 96 Room Air 07/31/16 16:10 97.2 48 18 111/54 96 Room Air 07/31/16 12:00 42 07/31/16 12:00 97.7 52 20 91/59 99 Room Air Intake and Output 07/31/16 08/01/16 18:59 06:59 Intake Total 1520 ml 925 ml Output Total 300 ml Balance 1220 ml 925 ml Intake Oral 120 ml 300 ml IV Total 1400 ml 625 ml Output Urine Total 300 ml # Voids 2 # Bowel Movements 1 2 Laboratory Tests Test 07/31/16 16:10 08/01/16 05:55 Urine Color Yellow Urine Appearance Clear Urine pH 6 (4.5-8.0) Urine Specific [facility] 1.020 (1.005-1.035) Urine Protein 2+ (NEGATIVE) H Urine Glucose (UA) Negative (NEGATIVE) Urine Ketones 1+ (NEGATIVE) H Urine Occult Blood 1+ (NEGATIVE) H Urine Nitrite Negative (NEGATIVE) Urine Bilirubin Negative (NEGATIVE) Urine Urobilinogen Normal MG/DL (0.0-1.0) Urine Leukocyte Esterase 1+ (NEGATIVE) H Urine RBC 0-2 /HPF (0 - 0) H Urine WBC 2-4 /HPF (0 - 0) Urine Squamous Epithelial Cells None /LPF (NONE/OCC) Urine Amorphous Sediment Few /LPF (NONE) H Urine Bacteria Few /HPF (NONE) White Blood Count 17.0 K/UL (4.8-10.8) H Red Blood Count 3.88 M/UL (4.70-6.10) L Hemoglobin 11.7 G/DL (14.2-18.0) L Hematocrit 35.4 % (42.0-52.0) L Mean Corpuscular Volume 91 FL (80-99) Mean Corpuscular Hemoglobin 30.1 PG (27.0-31.0) Mean Corpuscular Hemoglobin Concent 33.0 G/DL (32.0-36.0) Red Cell Distribution Width 12.9 % (11.6-14.8) Platelet Count 120 K/UL (150-450) L Mean Platelet Volume 9.0 FL (6.5-10.1) Neutrophils (%) (Auto) % (45.0-75.0) Lymphocytes (%) (Auto) % (20.0-45.0) Monocytes (%) (Auto) % (1.0-10.0) Eosinophils (%) (Auto) % (0.0-3.0) Basophils (%) (Auto) % (0.0-2.0) Differential Total Cells Counted 100 Neutrophils % (Manual) 88 % (45-75) H Lymphocytes % (Manual) 7 % (20-45) L Monocytes % (Manual) 5 % (1-10) Eosinophils % (Manual) 0 % (0-3) Basophils % (Manual) 0 % (0-2) Band Neutrophils 0 % (0-8) Platelet Estimate Decreased L Platelet Morphology Normal Red Blood Cell Morphology Normal Sodium Level 140 mEQ/L (135-145) Potassium Level 4.3 mEQ/L (3.4-4.9) Chloride Level 108 mEQ/L (98-107) H Carbon Dioxide Level 24 mEQ/L (20-30) Anion Gap 8 (5-15) Blood Urea Nitrogen 23 mg/dL (7-23) Creatinine 1.0 mg/dL (0.7-1.2) Estimat Glomerular Filtration Rate > 60 mL/min (>60) Glucose Level 137 mg/dL (74-106) H Calcium Level 7.2 mg/dL (8.6-10.2) L Phosphorus Level 2.3 mg/dL (2.5-4.8) L Magnesium Level 2.1 mg/dL (1.7-2.5) Total Bilirubin 0.3 mg/dL (0.0-1.2) Aspartate Amino Transf (AST/SGOT) 16 U/L (5-40) Alanine Aminotransferase (ALT/SGPT) 26 U/L (3-41) Alkaline Phosphatase 57 U/L (40-129) Total Protein 4.9 g/dL (6.6-8.7) L Albumin 2.3 g/dL (3.5-5.2) L Globulin 2.6 g/dL Albumin/Globulin Ratio 0.8 (1.0-2.7) L Coccidioides Antibody (Comp Fix) Pending Microbiology Date/Time Source Procedure Growth Status 07/31/16 16:10 Urine,Clean Catch Urine Culture - Preliminary NO GROWTH Resulted Height (Feet): 5 Height (Inches): 8.00 Weight (Pounds): 220 General Appearance: no apparent distress, alert Cardiovascular: normal rate Respiratory/Chest: normal breath sounds, no respiratory distress Abdominal Exam: normal bowel sounds, non tender, soft Extremities: normal range of motion Lucía Ruiz N.PJonatan Aug 01, 2016 12:01
[2016-08-01 12:30] VITALS: BP 119/76
--- NOTE | 2016-08-01 12:51 | Infectious Diseases Prog Note ---
Assessment/Plan Assessment/Plan ASSESSMENT: 61 y/o male with: // GNR bacteremia 4/4, m/l GI source - C&S pending // Severe sepsis - resolved lactic acidosis. Risk atypical infection on biologics // Possible ADR humira // Cough r/o bronchitis, PNA - CXR pending - CT: Pulmonary bibasal subsegmental atelectasis // h/o repeatedly negative QFT TB gold // Leukocytosis - improved // Low grade fever - improved // Crohn's disease, on humira ?exacerbated - CT A/P: Small bowel findings favor enteritis with ileus. Partial obstruction not excludable. No other evidence of acute abdominopelvic disease // Right non-obstructive nephrolithiasis // SP right DONAVON ~4 weeks - no evidence of infection // NKDA // Full Code PLAN: - continue zosyn d# 2 pending C&S - repeat BCx to document clearance - f/u coccidioides serology - f/u cultures - monitor CBC, temperatures - monitor BMP - monitor CXR Subjective Allergies: Coded Allergies: No Known Allergies (Unverified , 07/30/16) Subjective afebrile overnight BCx GNR Objective Vital Signs Last 24 Hour Vital Signs Date Time Temp Pulse Resp B/P Pulse Ox O2 Delivery O2 Flow Rate FiO2 08/01/16 08:00 97.0 51 18 109/78 97 Room Air 08/01/16 04:00 97.1 52 17 94/54 95 Room Air 08/01/16 00:00 98.1 51 17 94/55 95 Room Air 07/31/16 20:00 95.0 51 14 90/61 95 Room Air 07/31/16 18:50 98.2 57 18 98/61 96 Room Air 07/31/16 16:10 97.2 48 18 111/54 96 Room Air Height (Feet): 5 Height (Inches): 8.00 Weight (Pounds): 220 General Appearance: no acute distress Respiratory/Chest: no respiratory distress Cardiovascular: normal rate, regular rhythm Abdomen: normal bowel sounds, soft, non tender, non distended Microbiology Date/Time Source Procedure Growth Status 07/30/16 23:35 Blood Blood Culture - Preliminary Gram Negative Bacillus 1 Resulted 07/30/16 23:30 Blood Blood Culture - Preliminary Gram Negative Bacillus 1 Resulted 07/31/16 16:10 Urine,Clean Catch Urine Culture - Preliminary NO GROWTH Resulted Laboratory Tests Test 07/31/16 16:10 08/01/16 05:55 Urine Color Yellow Urine Appearance Clear Urine pH 6 (4.5-8.0) Urine Specific [place] 1.020 (1.005-1.035) Urine Protein 2+ (NEGATIVE) H Urine Glucose (UA) Negative (NEGATIVE) Urine Ketones 1+ (NEGATIVE) H Urine Occult Blood 1+ (NEGATIVE) H Urine Nitrite Negative (NEGATIVE) Urine Bilirubin Negative (NEGATIVE) Urine Urobilinogen Normal MG/DL (0.0-1.0) Urine Leukocyte Esterase 1+ (NEGATIVE) H Urine RBC 0-2 /HPF (0 - 0) H Urine WBC 2-4 /HPF (0 - 0) Urine Squamous Epithelial Cells None /LPF (NONE/OCC) Urine Amorphous Sediment Few /LPF (NONE) H Urine Bacteria Few /HPF (NONE) White Blood Count 17.0 K/UL (4.8-10.8) H Red Blood Count 3.88 M/UL (4.70-6.10) L Hemoglobin 11.7 G/DL (14.2-18.0) L Hematocrit 35.4 % (42.0-52.0) L Mean Corpuscular Volume 91 FL (80-99) Mean Corpuscular Hemoglobin 30.1 PG (27.0-31.0) Mean Corpuscular Hemoglobin Concent 33.0 G/DL (32.0-36.0) Red Cell Distribution Width 12.9 % (11.6-14.8) Platelet Count 120 K/UL (150-450) L Mean Platelet Volume 9.0 FL (6.5-10.1) Neutrophils (%) (Auto) % (45.0-75.0) Lymphocytes (%) (Auto) % (20.0-45.0) Monocytes (%) (Auto) % (1.0-10.0) Eosinophils (%) (Auto) % (0.0-3.0) Basophils (%) (Auto) % (0.0-2.0) Differential Total Cells Counted 100 Neutrophils % (Manual) 88 % (45-75) H Lymphocytes % (Manual) 7 % (20-45) L Monocytes % (Manual) 5 % (1-10) Eosinophils % (Manual) 0 % (0-3) Basophils % (Manual) 0 % (0-2) Band Neutrophils 0 % (0-8) Platelet Estimate Decreased L Platelet Morphology Normal Red Blood Cell Morphology Normal Sodium Level 140 mEQ/L (135-145) Potassium Level 4.3 mEQ/L (3.4-4.9) Chloride Level 108 mEQ/L (98-107) H Carbon Dioxide Level 24 mEQ/L (20-30) Anion Gap 8 (5-15) Blood Urea Nitrogen 23 mg/dL (7-23) Creatinine 1.0 mg/dL (0.7-1.2) Estimat Glomerular Filtration Rate > 60 mL/min (>60) Glucose Level 137 mg/dL (74-106) H Calcium Level 7.2 mg/dL (8.6-10.2) L Phosphorus Level 2.3 mg/dL (2.5-4.8) L Magnesium Level 2.1 mg/dL (1.7-2.5) Total Bilirubin 0.3 mg/dL (0.0-1.2) Aspartate Amino Transf (AST/SGOT) 16 U/L (5-40) Alanine Aminotransferase (ALT/SGPT) 26 U/L (3-41) Alkaline Phosphatase 57 U/L (40-129) Total Protein 4.9 g/dL (6.6-8.7) L Albumin 2.3 g/dL (3.5-5.2) L Globulin 2.6 g/dL Albumin/Globulin Ratio 0.8 (1.0-2.7) L Coccidioides Antibody (Comp Fix) Pending Current Medications Medications (Trade) Dose Ordered Sig/Sukhjinder Route PRN Reason Start Time Stop Time Status Last Admin Dose Admin Acetaminophen (Tylenol) 650 mg Q4H PRN ORAL FEVER 07/31/16 19:45 08/30/16 19:44 Acetaminophen (Tylenol) 650 mg Q4H PRN ORAL Mild Pain (Pain Scale 1-3) 07/31/16 19:45 08/30/16 19:44 Acetaminophen/ Hydrocodone Bitart ([place] 5/325) 1 tab Q6H PRN ORAL FOR PAIN 4-10 07/31/16 22:45 08/07/16 22:44 Aspirin (ASA) 81 mg DAILY NG 08/01/16 09:00 08/31/16 08:59 08/01/16 09:01 Diphenhydramine HCl (Benadryl) 25 mg Q6H PRN ORAL Itching/Pruritis 07/31/16 17:45 08/30/16 17:44 Diphenoxylate HCl/ Atropine (Lomotil) 2.5 mg Q6H PRN ORAL Diarrhea 07/31/16 17:45 08/30/16 17:44 Lorazepam (Ativan) 1 mg Q4H PRN ORAL For Anxiety 07/31/16 19:45 08/07/16 19:44 Morphine Sulfate (Morphine Sulfate) 2 mg Q6H PRN IVP 4-6 PAIN UNRESPONSIVE TO NORCO 07/31/16 18:30 08/07/16 18:29 Ondansetron HCl (Zofran) 4 mg Q6H PRN IVP Nausea & Vomiting 07/31/16 17:45 08/30/16 17:44 Piperacillin Sod/ Tazobactam Sod/ Dextrose (Zosyn/D5W 100ml) 100 ml @ 25 mls/hr EVERY 8 HOURS IVPB 07/31/16 22:00 08/05/16 21:59 08/01/16 05:05 Prednisone (predniSONE) 40 mg DAILY ORAL 08/01/16 09:00 08/31/16 08:59 08/01/16 09:02 Sodium Chloride 1,000 ml @ 100 mls/hr Q10H IV 07/31/16 17:30 08/30/16 17:29 08/01/16 03:45 Sodium Phosphate/ Sodium Chloride (NaPO4/Sodium Chloride 250ml bag) 260 ml @ 43 mls/hr ONCE ONCE IVPB 08/01/16 12:15 08/01/16 18:17 UNV Temazepam 15 mg 15 mg HSPRN PRN ORAL Insomnia 08/01/16 11:45 08/08/16 11:44 DARLIN HUNG Aug 01, 2016 12:51
[2016-08-01] MEDS ORDERED: D5W 55ML IV ONE (13:41)
[2016-08-01] MEDS ORDERED: Sodium Phosphate 30 MM in NS 250 ML IVPB ONE (15:00)
--- NOTE | 2016-08-01 15:35 | Pulmonology Progress Note ---
Assessment/Plan Problems: (1) Gram-negative bacteremia (2) Sepsis (3) Anaphylactic reaction (4) Enteritis (5) Crohn's colitis Assessment/Plan continue abx check sensitivity of GNr repeat BC tolerating diet doing better. check electrolytes Subjective ROS Limited/Unobtainable: No Interval Events: doing better, abdominal pain less Allergies: Coded Allergies: No Known Allergies (Unverified , 07/30/16) Objective Last 24 Hour Vital Signs Date Time Temp Pulse Resp B/P Pulse Ox O2 Delivery O2 Flow Rate FiO2 08/01/16 12:30 97.5 70 20 119/76 98 Room Air 08/01/16 08:00 97.0 51 18 109/78 97 Room Air 08/01/16 04:00 97.1 52 17 94/54 95 Room Air 08/01/16 00:00 98.1 51 17 94/55 95 Room Air 07/31/16 20:00 95.0 51 14 90/61 95 Room Air 07/31/16 18:50 98.2 57 18 98/61 96 Room Air 07/31/16 16:10 97.2 48 18 111/54 96 Room Air Intake and Output 07/31/16 08/01/16 19:00 07:00 Intake Total 1820 ml 625 ml Output Total 300 ml Balance 1520 ml 625 ml Intake Oral 420 ml IV Total 1400 ml 625 ml Output Urine Total 300 ml # Voids 2 # Bowel Movements 1 2 General Appearance: WD/WN HEENT: normocephalic, atraumatic Respiratory/Chest: chest wall non-tender, lungs clear Cardiovascular: normal peripheral pulses, normal rate Abdomen: normal bowel sounds, soft, non tender Genitourinary: normal external genitalia Neurologic/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: 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 Lymphatic: no neck adenopathy Microbiology Date/Time Source Procedure Growth Status 07/30/16 23:35 Blood Blood Culture - Preliminary Gram Negative Bacillus 1 Resulted 07/30/16 23:30 Blood Blood Culture - Preliminary Gram Negative Bacillus 1 Resulted 07/31/16 16:10 Urine,Clean Catch Urine Culture - Preliminary NO GROWTH Resulted Laboratory Tests 07/31/16 16:10: Urine Color Yellow, Urine Appearance Clear, Urine pH 6, Urine Specific [place] 1.020, Urine Protein 2+H, Urine Glucose (UA) Negative, Urine Ketones 1+H, Urine Occult Blood 1+H, Urine Nitrite Negative, Urine Bilirubin Negative, Urine Urobilinogen Normal, Urine Leukocyte Esterase 1+H, Urine RBC 0-2H, Urine WBC 2-4 , Urine Squamous Epithelial Cells None, Urine Amorphous Sediment FewH, Urine Bacteria Few 08/01/16 05:55: White Blood Count 17.0H, Red Blood Count 3.88L, Hemoglobin 11.7L, Hematocrit 35.4L, Mean Corpuscular Volume 91, Mean Corpuscular Hemoglobin 30.1, Mean Corpuscular Hemoglobin Concent 33.0, Red Cell Distribution Width 12.9, Platelet Count 120L, Mean Platelet Volume 9.0, Neutrophils (%) (Auto) , Lymphocytes (%) ( Auto) , Monocytes (%) (Auto) , Eosinophils (%) (Auto) , Basophils (%) (Auto) , Differential Total Cells Counted 100, Neutrophils % (Manual) 88H, Lymphocytes % (Manual) 7L, Monocytes % (Manual) 5, Eosinophils % (Manual) 0, Basophils % ( Manual) 0, Band Neutrophils 0, Platelet Estimate DecreasedL, Platelet Morphology Normal, Red Blood Cell Morphology Normal, Sodium Level 140, Potassium Level 4.3, Chloride Level 108H, Carbon Dioxide Level 24, Anion Gap 8, Blood Urea Nitrogen 23, Creatinine 1.0, Estimat Glomerular Filtration Rate > 60 , Glucose Level 137H, Calcium Level 7.2L, Phosphorus Level 2.3L, Magnesium Level 2.1, Total Bilirubin 0.3, Aspartate Amino Transf (AST/SGOT) 16, Alanine Aminotransferase (ALT/SGPT) 26, Alkaline Phosphatase 57, Total Protein 4.9L, Albumin 2.3L, Globulin 2.6, Albumin/Globulin Ratio 0.8L, Coccidioides Antibody ( Comp Fix) [Pending] Current Medications Medications (Trade) Dose Ordered Sig/Sukhjinder Route PRN Reason Start Time Stop Time Status Last Admin Dose Admin Acetaminophen (Tylenol) 650 mg Q4H PRN ORAL FEVER 07/31/16 19:45 08/30/16 19:44 Acetaminophen (Tylenol) 650 mg Q4H PRN ORAL Mild Pain (Pain Scale 1-3) 07/31/16 19:45 08/30/16 19:44 Acetaminophen/ Hydrocodone Bitart ([place] 5/325) 1 tab Q6H PRN ORAL FOR PAIN 4-10 07/31/16 22:45 08/07/16 22:44 Aspirin (ASA) 81 mg DAILY NG 08/01/16 09:00 08/31/16 08:59 08/01/16 09:01 Diphenhydramine HCl (Benadryl) 25 mg Q6H PRN ORAL Itching/Pruritis 07/31/16 17:45 08/30/16 17:44 Diphenoxylate HCl/ Atropine (Lomotil) 2.5 mg Q6H PRN ORAL Diarrhea 07/31/16 17:45 08/30/16 17:44 Lorazepam (Ativan) 1 mg Q4H PRN ORAL For Anxiety 07/31/16 19:45 08/07/16 19:44 Morphine Sulfate (Morphine Sulfate) 2 mg Q6H PRN IVP 4-6 PAIN UNRESPONSIVE TO NORCO 07/31/16 18:30 08/07/16 18:29 Ondansetron HCl (Zofran) 4 mg Q6H PRN IVP Nausea & Vomiting 07/31/16 17:45 08/30/16 17:44 Piperacillin Sod/ Tazobactam Sod/ Dextrose (Zosyn/D5W 100ml) 100 ml @ 25 mls/hr EVERY 8 HOURS IVPB 07/31/16 22:00 08/05/16 21:59 08/01/16 13:57 Prednisone (predniSONE) 40 mg DAILY ORAL 08/01/16 09:00 08/31/16 08:59 08/01/16 09:02 Sodium Chloride 1,000 ml @ 100 mls/hr Q10H IV 07/31/16 17:30 08/30/16 17:29 08/01/16 12:52 Sodium Phosphate/ Sodium Chloride (NaPO4/Sodium Chloride 250ml bag) 260 ml @ 43 mls/hr ONCE ONCE IVPB 08/01/16 15:00 08/01/16 21:02 Temazepam 15 mg 15 mg HSPRN PRN ORAL Insomnia 08/01/16 11:45 08/08/16 11:44 ALICIA CHAVARRIA Aug 01, 2016 15:35
[2016-08-01 16:00] VITALS: BP 93/60
--- NOTE | 2016-08-01 19:40 | Internal Med Progress Note ---
Subjective Date of Service: Aug 01, 2016 Physician Name Lina Covington Attending Physician Bakari Moreno MD Current Medications Medications (Trade) Dose Ordered Sig/Sukhjinder Route PRN Reason Start Time Stop Time Status Last Admin Dose Admin Acetaminophen (Tylenol) 650 mg Q4H PRN ORAL FEVER 07/31/16 19:45 08/30/16 19:44 Acetaminophen (Tylenol) 650 mg Q4H PRN ORAL Mild Pain (Pain Scale 1-3) 07/31/16 19:45 08/30/16 19:44 Acetaminophen/ Hydrocodone Bitart ([place] 5/325) 1 tab Q6H PRN ORAL FOR PAIN 4-10 07/31/16 22:45 08/07/16 22:44 Aspirin (ASA) 81 mg DAILY NG 08/01/16 09:00 08/31/16 08:59 08/01/16 09:01 Diphenhydramine HCl (Benadryl) 25 mg Q6H PRN ORAL Itching/Pruritis 07/31/16 17:45 08/30/16 17:44 Diphenoxylate HCl/ Atropine (Lomotil) 2.5 mg Q6H PRN ORAL Diarrhea 07/31/16 17:45 08/30/16 17:44 Lorazepam (Ativan) 1 mg Q4H PRN ORAL For Anxiety 07/31/16 19:45 08/07/16 19:44 Morphine Sulfate (Morphine Sulfate) 2 mg Q6H PRN IVP 4-6 PAIN UNRESPONSIVE TO NORCO 07/31/16 18:30 08/07/16 18:29 Ondansetron HCl (Zofran) 4 mg Q6H PRN IVP Nausea & Vomiting 07/31/16 17:45 08/30/16 17:44 Piperacillin Sod/ Tazobactam Sod/ Dextrose (Zosyn/D5W 100ml) 100 ml @ 25 mls/hr EVERY 8 HOURS IVPB 07/31/16 22:00 08/05/16 21:59 08/01/16 13:57 Prednisone (predniSONE) 40 mg DAILY ORAL 08/01/16 09:00 08/31/16 08:59 08/01/16 09:02 Sodium Chloride 1,000 ml @ 100 mls/hr Q10H IV 07/31/16 17:30 08/30/16 17:29 08/01/16 12:52 Sodium Phosphate/ Sodium Chloride (NaPO4/Sodium Chloride 250ml bag) 260 ml @ 43 mls/hr ONCE ONCE IVPB 08/01/16 15:00 08/01/16 21:02 08/01/16 17:41 Temazepam 15 mg 15 mg HSPRN PRN ORAL Insomnia 08/01/16 11:45 08/08/16 11:44 Allergies: Coded Allergies: No Known Allergies (Unverified , 07/30/16) ROS Limited/Unobtainable: No Constitutional: Reports: chills, fever HEENT: Reports: no symptoms Cardiovascular: Reports: no symptoms Respiratory: Reports: no symptoms Gastrointestinal/Abdominal: Reports: no symptoms Genitourinary: Reports: no symptoms Neurologic/Psychiatric: Reports: no symptoms Subjective 61 YO M admitted with sepsis. Cover for Int Med-Dr Moreno. Objective Last Vital Signs Date Time Temp Pulse Resp B/P Pulse Ox O2 Delivery O2 Flow Rate FiO2 08/01/16 16:00 96.8 42 14 93/60 95 Room Air 07/31/16 07:48 2.0 General Appearance: WD/WN, alert, mild distress EENT: PERRL/EOMI, normal ENT inspection Neck: non-tender, normal alignment, supple Cardiovascular: normal peripheral pulses, normal rate, regular rhythm, no gallop/murmur, no JVD Respiratory/Chest: chest wall non-tender, lungs clear, normal breath sounds, no respiratory distress, no accessory muscle use Abdomen: normal bowel sounds, non tender, soft, no organomegaly, no mass Extremities: normal range of motion 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, no motor/sensory deficits Skin: normal pigmentation, warm/dry Laboratory Tests Test 08/01/16 05:55 White Blood Count 17.0 K/UL (4.8-10.8) H Red Blood Count 3.88 M/UL (4.70-6.10) L Hemoglobin 11.7 G/DL (14.2-18.0) L Hematocrit 35.4 % (42.0-52.0) L Mean Corpuscular Volume 91 FL (80-99) Mean Corpuscular Hemoglobin 30.1 PG (27.0-31.0) Mean Corpuscular Hemoglobin Concent 33.0 G/DL (32.0-36.0) Red Cell Distribution Width 12.9 % (11.6-14.8) Platelet Count 120 K/UL (150-450) L Mean Platelet Volume 9.0 FL (6.5-10.1) Neutrophils (%) (Auto) % (45.0-75.0) Lymphocytes (%) (Auto) % (20.0-45.0) Monocytes (%) (Auto) % (1.0-10.0) Eosinophils (%) (Auto) % (0.0-3.0) Basophils (%) (Auto) % (0.0-2.0) Differential Total Cells Counted 100 Neutrophils % (Manual) 88 % (45-75) H Lymphocytes % (Manual) 7 % (20-45) L Monocytes % (Manual) 5 % (1-10) Eosinophils % (Manual) 0 % (0-3) Basophils % (Manual) 0 % (0-2) Band Neutrophils 0 % (0-8) Platelet Estimate Decreased L Platelet Morphology Normal Red Blood Cell Morphology Normal Sodium Level 140 mEQ/L (135-145) Potassium Level 4.3 mEQ/L (3.4-4.9) Chloride Level 108 mEQ/L (98-107) H Carbon Dioxide Level 24 mEQ/L (20-30) Anion Gap 8 (5-15) Blood Urea Nitrogen 23 mg/dL (7-23) Creatinine 1.0 mg/dL (0.7-1.2) Estimat Glomerular Filtration Rate > 60 mL/min (>60) Glucose Level 137 mg/dL (74-106) H Calcium Level 7.2 mg/dL (8.6-10.2) L Phosphorus Level 2.3 mg/dL (2.5-4.8) L Magnesium Level 2.1 mg/dL (1.7-2.5) Total Bilirubin 0.3 mg/dL (0.0-1.2) Aspartate Amino Transf (AST/SGOT) 16 U/L (5-40) Alanine Aminotransferase (ALT/SGPT) 26 U/L (3-41) Alkaline Phosphatase 57 U/L (40-129) Total Protein 4.9 g/dL (6.6-8.7) L Albumin 2.3 g/dL (3.5-5.2) L Globulin 2.6 g/dL Albumin/Globulin Ratio 0.8 (1.0-2.7) L Coccidioides Antibody (Comp Fix) Pending Microbiology Date/Time Source Procedure Growth Status 07/30/16 23:35 Blood Blood Culture - Preliminary Gram Negative Bacillus 1 Resulted 07/30/16 23:30 Blood Blood Culture - Preliminary Gram Negative Bacillus 1 Resulted 07/31/16 16:10 Urine,Clean Catch Urine Culture - Preliminary NO GROWTH Resulted Intake and Output 07/31/16 08/01/16 19:00 07:00 Intake Total 1820 ml 625 ml Output Total 300 ml Balance 1520 ml 625 ml Intake Oral 420 ml IV Total 1400 ml 625 ml Output Urine Total 300 ml # Voids 2 # Bowel Movements 1 2 Assessment/Plan Problem List: (1) Leukocytosis Assessment & Plan: Due to sepsis. Improving on zosyn. (2) Lactic acid acidosis (3) Sepsis Assessment & Plan: Gram neg adelita 4/4 bottles. Await ID and sens. Cont zosyn for now per ID (4) Crohn's colitis Assessment & Plan: On Humira-immunosuppressive (5) Gram-negative bacteremia Assessment & Plan: Cont zosyn per ID. Await ID and sensitivity Status: not improved LINA COVINGTON Aug 01, 2016 19:40
[2016-08-01 20:00] VITALS: BP 112/70
[2016-08-02] VITALS: BP 124/68
[2016-08-02 04:00] VITALS: BP 112/73
[2016-08-02 07:20] LABS: ANION GAP 13 (5-15); CALCIUM 7.7 mg/dL (8.6-10.2); CARBON DIOXIDE 23 mEQ/L (20-30); CHLORIDE 107 mEQ/L (98-107); GLOMERULAR FILTRATION RATE > 60 mL/min (>60); HEMOLYSIS 4; PHOSPHORUS 3.8 mg/dL (2.5-4.8); POTASSIUM 4.1 mEQ/L (3.4-4.9); SODIUM 143 mEQ/L (135-145)
[2016-08-02 07:29] LABS: BASOPHILS % (AUTO) 0.1 % (0.0-2.0); EOSINOPHILS % (AUTO) 0.2 % (0.0-3.0); LYMPHOCYTES % (AUTO) 10.8 % (20.0-45.0); MEAN CORPUSCULAR HEMOGLOBIN 29.9 PG (27.0-31.0); MEAN CORPUSCULAR HGB CONC 32.6 G/DL (32.0-36.0); MEAN CORPUSCULAR VOLUME 92 FL (80-99); MEAN PLATELET VOLUME 9.3 FL (6.5-10.1); MONOCYTES % (AUTO) 11.3 % (1.0-10.0); NEUTROPHILS % (AUTO) 77.6 % (45.0-75.0); PLATELET COUNT 130 K/UL (150-450); RED BLOOD COUNT 4.13 M/UL (4.70-6.10); RED CELL DISTRIBUTION WIDTH 13.2 % (11.6-14.8); WHITE BLOOD COUNT 9.9 K/UL (4.8-10.8)
[2016-08-02 08:00] VITALS: BP 111/72
--- NOTE | 2016-08-02 08:30 | Diagnostic Imaging Report ---
Indications: Chest pain Technique: Portable AP chest Findings: Comparison: None Suboptimal inspiration, lordotic projection limits evaluation. Heart size, pulmonary vasculature within normal limits. Visualized portions of lungs and pleura clear. No abnormal mediastinal widening. IMPRESSION: No evidence of acute cardiopulmonary disease, limited as described. Basal abnormalities may be missed. Upright PA and lateral chest radiographs with better inspiratory effort and optimal technique recommended for more complete evaluation.
--- NOTE | 2016-08-02 08:34 | Infectious Diseases Prog Note ---
Assessment/Plan Assessment/Plan ASSESSMENT: 61 y/o male with: // Pansensitive E.coli bacteremia 4/4, m/l GI source - repeat BCx pending // Cough r/o bronchitis, PNA - CXR pending - CT: Pulmonary bibasal subsegmental atelectasis // Severe sepsis SP - resolved lactic acidosis. Risk atypical infection on biologics // Possible ADR humira // h/o repeatedly negative QFT TB gold // Leukocytosis - resolved // Low grade fever - resolved // Crohn's disease, on humira, steroids ?exacerbated - CT A/P: Small bowel findings favor enteritis with ileus. Partial obstruction not excludable. No other evidence of acute abdominopelvic disease // TCP ?zosyn // Right non-obstructive nephrolithiasis // SP right DONAVON ~4 weeks - no evidence of infection // NKDA // Full Code PLAN: - de-escalate zosyn d# 3 to invanz d# 1 ( ABX d# 3 / ) based on cultures, TCP. Recommend IV ABX at discharge since immunosuppressed - steroids per GI, consider steroid-sparing agent - f/u repeat BCx to document clearance - f/u coccidioides serology - monitor CBC, temperatures - monitor BMP - monitor CXR Subjective Allergies: Coded Allergies: No Known Allergies (Unverified , 07/30/16) Subjective fevers resolved, WBC normalized BCx pansensitive E.coli Objective Vital Signs Last 24 Hour Vital Signs Date Time Temp Pulse Resp B/P Pulse Ox O2 Delivery O2 Flow Rate FiO2 08/02/16 04:00 97.0 51 19 112/73 96 Room Air 08/02/16 00:00 97.1 48 19 124/68 98 Room Air 08/01/16 20:00 96.6 53 13 112/70 95 Room Air 08/01/16 16:00 96.8 42 14 93/60 95 Room Air 08/01/16 12:30 97.5 70 20 119/76 98 Room Air Height (Feet): 5 Height (Inches): 8.00 Weight (Pounds): 220 General Appearance: no acute distress Respiratory/Chest: no respiratory distress Cardiovascular: normal rate, regular rhythm Abdomen: normal bowel sounds, soft, non tender, non distended Microbiology Date/Time Source Procedure Growth Status 07/30/16 23:35 Blood Blood Culture - Final Escherichia Coli Complete 07/30/16 23:30 Blood Blood Culture - Final Escherichia Coli Complete 07/31/16 12:00 Nasal Nares MRSA Culture - Final NO METHICILLIN RESISTANT STAPH AUREUS... Complete 07/31/16 16:10 Urine,Clean Catch Urine Culture - Final NO GROWTH AFTER 48 HOURS Complete Laboratory Tests Test 08/02/16 05:20 White Blood Count 9.9 K/UL (4.8-10.8) Red Blood Count 4.13 M/UL (4.70-6.10) L Hemoglobin 12.3 G/DL (14.2-18.0) L Hematocrit 37.8 % (42.0-52.0) L Mean Corpuscular Volume 92 FL (80-99) Mean Corpuscular Hemoglobin 29.9 PG (27.0-31.0) Mean Corpuscular Hemoglobin Concent 32.6 G/DL (32.0-36.0) Red Cell Distribution Width 13.2 % (11.6-14.8) Platelet Count 130 K/UL (150-450) L Mean Platelet Volume 9.3 FL (6.5-10.1) Neutrophils (%) (Auto) 77.6 % (45.0-75.0) H Lymphocytes (%) (Auto) 10.8 % (20.0-45.0) L Monocytes (%) (Auto) 11.3 % (1.0-10.0) H Eosinophils (%) (Auto) 0.2 % (0.0-3.0) Basophils (%) (Auto) 0.1 % (0.0-2.0) Sodium Level 143 mEQ/L (135-145) Potassium Level 4.1 mEQ/L (3.4-4.9) Chloride Level 107 mEQ/L (98-107) Carbon Dioxide Level 23 mEQ/L (20-30) Anion Gap 13 (5-15) Blood Urea Nitrogen 19 mg/dL (7-23) Creatinine 1.0 mg/dL (0.7-1.2) Estimat Glomerular Filtration Rate > 60 mL/min (>60) Glucose Level 101 mg/dL (74-106) Calcium Level 7.7 mg/dL (8.6-10.2) L Phosphorus Level 3.8 mg/dL (2.5-4.8) Current Medications Medications (Trade) Dose Ordered Sig/Sukhjinder Route PRN Reason Start Time Stop Time Status Last Admin Dose Admin Acetaminophen (Tylenol) 650 mg Q4H PRN ORAL FEVER 07/31/16 19:45 08/30/16 19:44 Acetaminophen (Tylenol) 650 mg Q4H PRN ORAL Mild Pain (Pain Scale 1-3) 07/31/16 19:45 08/30/16 19:44 Acetaminophen/ Hydrocodone Bitart ([place] 5/325) 1 tab Q6H PRN ORAL FOR PAIN 4-10 07/31/16 22:45 08/07/16 22:44 Aspirin (ASA) 81 mg DAILY NG 08/01/16 09:00 08/31/16 08:59 08/01/16 09:01 Diphenhydramine HCl (Benadryl) 25 mg Q6H PRN ORAL Itching/Pruritis 07/31/16 17:45 08/30/16 17:44 Diphenoxylate HCl/ Atropine (Lomotil) 2.5 mg Q6H PRN ORAL Diarrhea 07/31/16 17:45 08/30/16 17:44 Lorazepam (Ativan) 1 mg Q4H PRN ORAL For Anxiety 07/31/16 19:45 08/07/16 19:44 Morphine Sulfate (Morphine Sulfate) 2 mg Q6H PRN IVP 4-6 PAIN UNRESPONSIVE TO NORCO 07/31/16 18:30 08/07/16 18:29 Ondansetron HCl (Zofran) 4 mg Q6H PRN IVP Nausea & Vomiting 07/31/16 17:45 08/30/16 17:44 Piperacillin Sod/ Tazobactam Sod/ Dextrose (Zosyn/D5W 100ml) 100 ml @ 25 mls/hr EVERY 8 HOURS IVPB 07/31/16 22:00 08/05/16 21:59 08/02/16 06:23 Prednisone (predniSONE) 40 mg DAILY ORAL 08/01/16 09:00 08/31/16 08:59 08/01/16 09:02 Sodium Chloride 1,000 ml @ 100 mls/hr Q10H IV 07/31/16 17:30 08/30/16 17:29 08/01/16 12:52 Temazepam (Restoril) 15 mg HSPRN PRN ORAL Insomnia 08/01/16 11:45 08/08/16 11:44 DARLIN HUNG Aug 02, 2016 08:34
[2016-08-02] MEDS: Aspirin Baby 81mg NG SCH (08:52)
[2016-08-02] MEDS: PredniSONE 20mg tab ORAL SCH (08:52)
--- NOTE | 2016-08-02 11:06 | Pulmonology Progress Note ---
Assessment/Plan Problems: (1) Gram-negative bacteremia (2) Sepsis (3) Anaphylactic reaction (4) Enteritis (5) Crohn's colitis Assessment/Plan continue abx E coli in blood pansensitive repeat BC tolerating diet doing better. check electrolytes decrease IV fluids Subjective ROS Limited/Unobtainable: No Constitutional: Reports: no symptoms HEENT: Repors: no symptoms Respiratory: Reports: no symptoms Cardiovascular: Reports: no symptoms Allergies: Coded Allergies: No Known Allergies (Unverified , 07/30/16) Objective Last 24 Hour Vital Signs Date Time Temp Pulse Resp B/P Pulse Ox O2 Delivery O2 Flow Rate FiO2 08/02/16 08:00 97.7 55 19 111/72 97 Room Air 08/02/16 04:00 97.0 51 19 112/73 96 Room Air 08/02/16 00:00 97.1 48 19 124/68 98 Room Air 08/01/16 20:00 96.6 53 13 112/70 95 Room Air 08/01/16 16:00 96.8 42 14 93/60 95 Room Air 08/01/16 12:30 97.5 70 20 119/76 98 Room Air Intake and Output 08/01/16 08/02/16 18:59 06:59 Intake Total 1580 ml 280 ml Output Total 600 ml Balance 980 ml 280 ml Intake Oral 1580 ml 280 ml Other 0 ml Output Urine Total 600 ml # Voids 7 8 # Bowel Movements 3 9 General Appearance: WD/WN HEENT: normocephalic Respiratory/Chest: chest wall non-tender, lungs clear Cardiovascular: normal peripheral pulses, normal rate Abdomen: normal bowel sounds, soft, non tender Extremities: no cyanosis Skin: no rash 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 Complete 07/31/16 16:10 Urine,Clean Catch Urine Culture - Final NO GROWTH AFTER 48 HOURS Complete Laboratory Tests 08/02/16 05:20: White Blood Count 9.9, Red Blood Count 4.13L, Hemoglobin 12.3L, Hematocrit 37.8L , Mean Corpuscular Volume 92, Mean Corpuscular Hemoglobin 29.9, Mean Corpuscular Hemoglobin Concent 32.6, Red Cell Distribution Width 13.2, Platelet Count 130L, Mean Platelet Volume 9.3, Neutrophils (%) (Auto) 77.6H, Lymphocytes (%) (Auto) 10.8L, Monocytes (%) (Auto) 11.3H, Eosinophils (%) (Auto) 0.2, Basophils (%) (Auto) 0.1, Sodium Level 143, Potassium Level 4.1, Chloride Level 107, Carbon Dioxide Level 23, Anion Gap 13, Blood Urea Nitrogen 19, Creatinine 1.0, Estimat Glomerular Filtration Rate > 60, Glucose Level 101, Calcium Level 7.7L, Phosphorus Level 3.8 Current Medications Medications (Trade) Dose Ordered Sig/Sukhjinder Route PRN Reason Start Time Stop Time Status Last Admin Dose Admin Acetaminophen (Tylenol) 650 mg Q4H PRN ORAL FEVER 07/31/16 19:45 08/30/16 19:44 Acetaminophen (Tylenol) 650 mg Q4H PRN ORAL Mild Pain (Pain Scale 1-3) 07/31/16 19:45 08/30/16 19:44 Acetaminophen/ Hydrocodone Bitart ([place] 5/325) 1 tab Q6H PRN ORAL FOR PAIN 4-10 07/31/16 22:45 08/07/16 22:44 Aspirin (ASA) 81 mg DAILY NG 08/01/16 09:00 08/31/16 08:59 08/02/16 08:52 Diphenhydramine HCl (Benadryl) 25 mg Q6H PRN ORAL Itching/Pruritis 07/31/16 17:45 08/30/16 17:44 Diphenoxylate HCl/ Atropine (Lomotil) 2.5 mg Q6H PRN ORAL Diarrhea 07/31/16 17:45 08/30/16 17:44 Ertapenem/Sodium Chloride (INVanz/Sodium Chloride 100ml bag) 110 ml @ 220 mls/hr Q24H IVPB 08/02/16 17:00 08/07/16 16:59 Lorazepam (Ativan) 1 mg Q4H PRN ORAL For Anxiety 07/31/16 19:45 08/07/16 19:44 Morphine Sulfate (Morphine Sulfate) 2 mg Q6H PRN IVP 4-6 PAIN UNRESPONSIVE TO NORCO 07/31/16 18:30 08/07/16 18:29 Ondansetron HCl (Zofran) 4 mg Q6H PRN IVP Nausea & Vomiting 07/31/16 17:45 08/30/16 17:44 Prednisone (predniSONE) 40 mg DAILY ORAL 08/01/16 09:00 08/31/16 08:59 08/02/16 08:52 Sodium Chloride (Sodium Chloride 1000ml bag) 1,000 ml @ 100 mls/hr Q10H IV 07/31/16 17:30 08/30/16 17:29 08/02/16 08:52 Temazepam 15 mg 15 mg HSPRN PRN ORAL Insomnia 08/01/16 11:45 08/08/16 11:44 ALICIA CHAVARRIA Aug 02, 2016 11:06
[2016-08-02 12:00] VITALS: BP 104/68
--- NOTE | 2016-08-02 15:50 | General Progress Note ---
Assessment/Plan Assessment/Plan (1) Crohn's colitis ICD Codes: K50.10 - Crohn's disease of large intestine without complications SNOMED: 96313415 Qualifiers: Qualified Codes: K50.118 - Crohn's disease of large intestine with other complication (2) Anaphylactic reaction ICD Codes: T78.2XXA - Anaphylactic shock, unspecified, initial encounter SNOMED: 84507658 Qualifiers: Qualified Codes: T78.2XXA - Anaphylactic shock, unspecified, initial encounter (3) Enteritis ICD Codes: K52.9 - Noninfective gastroenteritis and colitis, unspecified SNOMED: 41880874 Status: stable, progressing Assessment/Plan AP CT >> enteritis with ileus >> pt reported to have BM and passing gas diarrhea >> crohn's flare Crohn's medication Humira given once every two weeks. -------- symptomatic treatment pain mgmt abx per ID regular diet H2 fu labs Subjective Allergies: Coded Allergies: No Known Allergies (Unverified , 07/30/16) Subjective Feels OK no abd pain (+) Loose BM ate well Objective Last 24 Hour Vital Signs Date Time Temp Pulse Resp B/P Pulse Ox O2 Delivery O2 Flow Rate FiO2 08/02/16 12:00 97.0 50 18 104/68 96 Room Air 08/02/16 08:00 97.7 55 19 111/72 97 Room Air 08/02/16 04:00 97.0 51 19 112/73 96 Room Air 08/02/16 00:00 97.1 48 19 124/68 98 Room Air 08/01/16 20:00 96.6 53 13 112/70 95 Room Air 08/01/16 16:00 96.8 42 14 93/60 95 Room Air Intake and Output 08/01/16 08/02/16 19:00 07:00 Intake Total 1580 ml 280 ml Output Total 600 ml Balance 980 ml 280 ml Intake Oral 1580 ml 280 ml Other 0 ml Output Urine Total 600 ml # Voids 7 8 # Bowel Movements 3 9 Laboratory Tests 08/02/16 05:20: White Blood Count 9.9, Red Blood Count 4.13L, Hemoglobin 12.3L, Hematocrit 37.8L , Mean Corpuscular Volume 92, Mean Corpuscular Hemoglobin 29.9, Mean Corpuscular Hemoglobin Concent 32.6, Red Cell Distribution Width 13.2, Platelet Count 130L, Mean Platelet Volume 9.3, Neutrophils (%) (Auto) 77.6H, Lymphocytes (%) (Auto) 10.8L, Monocytes (%) (Auto) 11.3H, Eosinophils (%) (Auto) 0.2, Basophils (%) (Auto) 0.1, Sodium Level 143, Potassium Level 4.1, Chloride Level 107, Carbon Dioxide Level 23, Anion Gap 13, Blood Urea Nitrogen 19, Creatinine 1.0, Estimat Glomerular Filtration Rate > 60, Glucose Level 101, Calcium Level 7.7L, Phosphorus Level 3.8 Height (Feet): 5 Height (Inches): 8.00 Weight (Pounds): 220 Objective WDWN NAD NCAT supple, no neck mass CTA RRR Abd soft NT ND no edema non focal ZAYNAB NEVAREZ Aug 02, 2016 15:50
[2016-08-02 16:00] VITALS: BP 114/74
[2016-08-02] MEDS: Ertapenem 1 GM in NS 110 ML IVPB SCH (17:27)
--- NOTE | 2016-08-02 18:41 | Internal Med Progress Note ---
Subjective Date of Service: Aug 02, 2016 Physician Name Covington,Lina Attending Physician Bakari Moreno MD Current Medications Medications (Trade) Dose Ordered Sig/Sukhjinder Route PRN Reason Start Time Stop Time Status Last Admin Dose Admin Acetaminophen (Tylenol) 650 mg Q4H PRN ORAL FEVER 07/31/16 19:45 08/30/16 19:44 Acetaminophen (Tylenol) 650 mg Q4H PRN ORAL Mild Pain (Pain Scale 1-3) 07/31/16 19:45 08/30/16 19:44 Acetaminophen/ Hydrocodone Bitart ([place] 5/325) 1 tab Q6H PRN ORAL FOR PAIN 4-10 07/31/16 22:45 08/07/16 22:44 Aspirin (ASA) 81 mg DAILY NG 08/01/16 09:00 08/31/16 08:59 08/02/16 08:52 Diphenhydramine HCl (Benadryl) 25 mg Q6H PRN ORAL Itching/Pruritis 07/31/16 17:45 08/30/16 17:44 Diphenoxylate HCl/ Atropine (Lomotil) 2.5 mg Q6H PRN ORAL Diarrhea 07/31/16 17:45 08/30/16 17:44 Ertapenem 1 gm/ Sodium Chloride 110 ml @ 220 mls/hr Q24H IVPB 08/02/16 17:00 08/07/16 16:59 08/02/16 17:27 Lorazepam (Ativan) 1 mg Q4H PRN ORAL For Anxiety 07/31/16 19:45 08/07/16 19:44 Morphine Sulfate (Morphine Sulfate) 2 mg Q6H PRN IVP 4-6 PAIN UNRESPONSIVE TO NORCO 07/31/16 18:30 08/07/16 18:29 Ondansetron HCl (Zofran) 4 mg Q6H PRN IVP Nausea & Vomiting 07/31/16 17:45 08/30/16 17:44 Prednisone (predniSONE) 40 mg DAILY ORAL 08/01/16 09:00 08/31/16 08:59 08/02/16 08:52 Sodium Chloride (Sodium Chloride 1000ml bag) 1,000 ml @ 50 mls/hr Q20H IV 08/02/16 13:00 09/01/16 12:59 Temazepam 15 mg 15 mg HSPRN PRN ORAL Insomnia 08/01/16 11:45 08/08/16 11:44 Allergies: Coded Allergies: No Known Allergies (Unverified , 07/30/16) ROS Limited/Unobtainable: No Constitutional: Reports: no symptoms HEENT: Reports: no symptoms Cardiovascular: Reports: no symptoms Respiratory: Reports: no symptoms Gastrointestinal/Abdominal: Reports: no symptoms Genitourinary: Reports: no symptoms Neurologic/Psychiatric: Reports: no symptoms Subjective 61 YO M admitted with sepsis. Cover for Int Med-Dr Moreno. Objective Last Vital Signs Date Time Temp Pulse Resp B/P Pulse Ox O2 Delivery O2 Flow Rate FiO2 08/02/16 16:00 97.0 50 20 114/74 97 Room Air 07/31/16 07:48 2.0 Laboratory Tests Test 08/02/16 05:20 White Blood Count 9.9 K/UL (4.8-10.8) Red Blood Count 4.13 M/UL (4.70-6.10) L Hemoglobin 12.3 G/DL (14.2-18.0) L Hematocrit 37.8 % (42.0-52.0) L Mean Corpuscular Volume 92 FL (80-99) Mean Corpuscular Hemoglobin 29.9 PG (27.0-31.0) Mean Corpuscular Hemoglobin Concent 32.6 G/DL (32.0-36.0) Red Cell Distribution Width 13.2 % (11.6-14.8) Platelet Count 130 K/UL (150-450) L Mean Platelet Volume 9.3 FL (6.5-10.1) Neutrophils (%) (Auto) 77.6 % (45.0-75.0) H Lymphocytes (%) (Auto) 10.8 % (20.0-45.0) L Monocytes (%) (Auto) 11.3 % (1.0-10.0) H Eosinophils (%) (Auto) 0.2 % (0.0-3.0) Basophils (%) (Auto) 0.1 % (0.0-2.0) Sodium Level 143 mEQ/L (135-145) Potassium Level 4.1 mEQ/L (3.4-4.9) Chloride Level 107 mEQ/L (98-107) Carbon Dioxide Level 23 mEQ/L (20-30) Anion Gap 13 (5-15) Blood Urea Nitrogen 19 mg/dL (7-23) Creatinine 1.0 mg/dL (0.7-1.2) Estimat Glomerular Filtration Rate > 60 mL/min (>60) Glucose Level 101 mg/dL (74-106) Calcium Level 7.7 mg/dL (8.6-10.2) L Phosphorus Level 3.8 mg/dL (2.5-4.8) Microbiology Date/Time Source Procedure Growth Status 07/30/16 23:35 Blood Blood Culture - Final Escherichia Coli Complete 07/30/16 23:30 Blood Blood Culture - Final Escherichia Coli Complete 07/31/16 12:00 Nasal Nares MRSA Culture - Final NO METHICILLIN RESISTANT STAPH AUREUS... Complete 07/31/16 16:10 Urine,Clean Catch Urine Culture - Final NO GROWTH AFTER 48 HOURS Complete Intake and Output 08/01/16 08/02/16 19:00 07:00 Intake Total 1580 ml 280 ml Output Total 600 ml Balance 980 ml 280 ml Intake Oral 1580 ml 280 ml Other 0 ml Output Urine Total 600 ml # Voids 7 8 # Bowel Movements 3 9 Objective General Appearance: WD/WN, alert, mild distress EENT: PERRL/EOMI, normal ENT inspection Neck: non-tender, normal alignment, supple Cardiovascular: normal peripheral pulses, normal rate, regular rhythm, no gallop/murmur, no JVD Respiratory/Chest: chest wall non-tender, lungs clear, normal breath sounds, no respiratory distress, no accessory muscle use Abdomen: normal bowel sounds, non tender, soft, no organomegaly, no mass Extremities: normal range of motion 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 Improving on Imipenem per ID (2) Lactic acid acidosis (3) Sepsis Assessment & Plan: E. Coli. Cont imipenem for now per ID Will require 2 weeks antibiotic per ID-Await PICC placement. Will need home health for IV antibiotic at home (4) Crohn's colitis Assessment & Plan: See GI note. See ID note concerning prednisone. On Humira- immunosuppressive (5) Gram-negative bacteremia Assessment & Plan: Cont zosyn per ID. Await ID and sensitivity (6) E coli bacteremia Assessment & Plan: Cont Imipenem Status: progressing LINA COVINGTON Aug 02, 2016 18:41
[2016-08-02 20:00] VITALS: BP 128/77
[2016-08-03] VITALS: BP 114/69
[2016-08-03 04:00] VITALS: BP 107/73
[2016-08-03 07:47] LABS: BASOPHILS % (AUTO) 0.3 % (0.0-2.0); EOSINOPHILS % (AUTO) 0.5 % (0.0-3.0); MEAN CORPUSCULAR HEMOGLOBIN 29.9 PG (27.0-31.0); MEAN CORPUSCULAR HGB CONC 32.5 G/DL (32.0-36.0); MEAN CORPUSCULAR VOLUME 92 FL (80-99); MEAN PLATELET VOLUME 8.8 FL (6.5-10.1); MONOCYTES % (AUTO) 14.3 % (1.0-10.0); NEUTROPHILS % (AUTO) 65.9 % (45.0-75.0); PLATELET COUNT 132 K/UL (150-450); RED BLOOD COUNT 4.12 M/UL (4.70-6.10); WHITE BLOOD COUNT 7.2 K/UL (4.8-10.8)
[2016-08-03 08:00] VITALS: BP 115/72
[2016-08-03 08:07] LABS: ALANINE AMINOTRANSFERASE 103 U/L (3-41); ALBUMIN/GLOBULIN RATIO 1.1 (1.0-2.7); ANION GAP 11 (5-15); ASPARTATE AMINO TRANSFERASE 41 U/L (5-40); CALCIUM 7.8 mg/dL (8.6-10.2); CARBON DIOXIDE 26 mEQ/L (20-30); CHLORIDE 108 mEQ/L (98-107); CREATININE 0.9 mg/dL (0.7-1.2); GLOMERULAR FILTRATION RATE > 60 mL/min (>60); HEMOLYSIS 4; MAGNESIUM 2.2 mg/dL (1.7-2.5); PHOSPHORUS 2.8 mg/dL (2.5-4.8); POTASSIUM 4.1 mEQ/L (3.4-4.9); SODIUM 145 mEQ/L (135-145); TOTAL PROTEIN 4.9 g/dL (6.6-8.7)
--- NOTE | 2016-08-03 09:45 | Infectious Diseases Prog Note ---
Assessment/Plan Assessment/Plan ASSESSMENT: 61 y/o male with: // Pansensitive E.coli bacteremia 4/, m/l GI source - repeat BCx NGTD // Cough, possible bronchitis - improved - CXR: No evidence of acute cardiopulmonary disease - CT: Pulmonary bibasal subsegmental atelectasis // Severe sepsis SP - resolved lactic acidosis. Risk atypical infection on biologics // Possible ADR humira // h/o repeatedly negative QFT TB gold // Leukocytosis - resolved // Low grade fever - resolved // Crohn's disease, on humira, steroids ?exacerbated - CT A/P: Small bowel findings favor enteritis with ileus. Partial obstruction not excludable. No other evidence of acute abdominopelvic disease // TCP ?zosyn // Right non-obstructive nephrolithiasis // SP right DONAVON ~4 weeks - no evidence of infection // NKDA // Full Code PLAN: - DC planning for IV invanz x10 more days ( ABX d# ). Recommend IV ABX at discharge since immunosuppressed ( 08/02 SP zosyn d# 3 ) - steroids per GI, consider steroid-sparing agent - f/u repeat BCx to document clearance - f/u coccidioides serology - monitor CBC, temperatures - monitor BMP - monitor CXR Subjective Allergies: Coded Allergies: No Known Allergies (Unverified , 07/30/16) Subjective remains afebrile without leukocytosis repeat BCx NGTD Objective Vital Signs Last 24 Hour Vital Signs Date Time Temp Pulse Resp B/P Pulse Ox O2 Delivery O2 Flow Rate FiO2 08/03/16 04:00 98.1 91 20 107/73 95 Room Air 08/03/16 00:00 98.2 51 18 114/69 95 Room Air 08/02/16 20:00 98.2 58 20 128/77 98 Room Air 08/02/16 16:00 97.0 50 20 114/74 97 Room Air 08/02/16 12:00 97.0 50 18 104/68 96 Room Air Height (Feet): 5 Height (Inches): 8.00 Weight (Pounds): 220 General Appearance: no acute distress Respiratory/Chest: no respiratory distress Cardiovascular: normal rate, regular rhythm Abdomen: normal bowel sounds, soft, non tender, distended Microbiology Date/Time Source Procedure Growth Status 08/01/16 20:45 Blood Blood Culture - Preliminary NO GROWTH AFTER 24 HOURS Resulted 08/01/16 20:30 Blood Blood Culture - Preliminary NO GROWTH AFTER 24 HOURS Resulted 07/31/16 12:00 Nasal Nares MRSA Culture - Final NO METHICILLIN RESISTANT STAPH AUREUS... Complete 07/31/16 16:10 Urine,Clean Catch Urine Culture - Final NO GROWTH AFTER 48 HOURS Complete Laboratory Tests Test 08/03/16 05:15 White Blood Count 7.2 K/UL (4.8-10.8) Red Blood Count 4.12 M/UL (4.70-6.10) L Hemoglobin 12.3 G/DL (14.2-18.0) L Hematocrit 37.9 % (42.0-52.0) L Mean Corpuscular Volume 92 FL (80-99) Mean Corpuscular Hemoglobin 29.9 PG (27.0-31.0) Mean Corpuscular Hemoglobin Concent 32.5 G/DL (32.0-36.0) Red Cell Distribution Width 13.0 % (11.6-14.8) Platelet Count 132 K/UL (150-450) L Mean Platelet Volume 8.8 FL (6.5-10.1) Neutrophils (%) (Auto) 65.9 % (45.0-75.0) Lymphocytes (%) (Auto) 19.0 % (20.0-45.0) L Monocytes (%) (Auto) 14.3 % (1.0-10.0) H Eosinophils (%) (Auto) 0.5 % (0.0-3.0) Basophils (%) (Auto) 0.3 % (0.0-2.0) Sodium Level 145 mEQ/L (135-145) Potassium Level 4.1 mEQ/L (3.4-4.9) Chloride Level 108 mEQ/L (98-107) H Carbon Dioxide Level 26 mEQ/L (20-30) Anion Gap 11 (5-15) Blood Urea Nitrogen 15 mg/dL (7-23) Creatinine 0.9 mg/dL (0.7-1.2) Estimat Glomerular Filtration Rate > 60 mL/min (>60) Glucose Level 87 mg/dL (74-106) Calcium Level 7.8 mg/dL (8.6-10.2) L Phosphorus Level 2.8 mg/dL (2.5-4.8) Magnesium Level 2.2 mg/dL (1.7-2.5) Total Bilirubin 0.3 mg/dL (0.0-1.2) Aspartate Amino Transf (AST/SGOT) 41 U/L (5-40) H Alanine Aminotransferase (ALT/SGPT) 103 U/L (3-41) H Alkaline Phosphatase 42 U/L (40-129) Total Protein 4.9 g/dL (6.6-8.7) L Albumin 2.6 g/dL (3.5-5.2) L Globulin 2.3 g/dL Albumin/Globulin Ratio 1.1 (1.0-2.7) Current Medications Medications (Trade) Dose Ordered Sig/Sukhjinder Route PRN Reason Start Time Stop Time Status Last Admin Dose Admin Acetaminophen (Tylenol) 650 mg Q4H PRN ORAL FEVER 07/31/16 19:45 08/30/16 19:44 Acetaminophen (Tylenol) 650 mg Q4H PRN ORAL Mild Pain (Pain Scale 1-3) 07/31/16 19:45 08/30/16 19:44 Acetaminophen/ Hydrocodone Bitart ([place] 5/325) 1 tab Q6H PRN ORAL FOR PAIN 4-10 07/31/16 22:45 08/07/16 22:44 Aspirin (ASA) 81 mg DAILY NG 08/01/16 09:00 08/31/16 08:59 08/02/16 08:52 Diphenhydramine HCl (Benadryl) 25 mg Q6H PRN ORAL Itching/Pruritis 07/31/16 17:45 08/30/16 17:44 Diphenoxylate HCl/ Atropine (Lomotil) 2.5 mg Q6H PRN ORAL Diarrhea 07/31/16 17:45 08/30/16 17:44 Ertapenem 1 gm/ Sodium Chloride 110 ml @ 220 mls/hr Q24H IVPB 08/02/16 17:00 08/07/16 16:59 08/02/16 17:27 Lorazepam (Ativan) 1 mg Q4H PRN ORAL For Anxiety 07/31/16 19:45 08/07/16 19:44 Morphine Sulfate (Morphine Sulfate) 2 mg Q6H PRN IVP 4-6 PAIN UNRESPONSIVE TO NORCO 07/31/16 18:30 08/07/16 18:29 Ondansetron HCl (Zofran) 4 mg Q6H PRN IVP Nausea & Vomiting 07/31/16 17:45 08/30/16 17:44 Prednisone (predniSONE) 40 mg DAILY ORAL 08/01/16 09:00 08/31/16 08:59 08/02/16 08:52 Sodium Chloride (Sodium Chloride 1000ml bag) 1,000 ml @ 50 mls/hr Q20H IV 08/02/16 13:00 09/01/16 12:59 08/02/16 19:11 Temazepam 15 mg 15 mg HSPRN PRN ORAL Insomnia 08/01/16 11:45 08/08/16 11:44 DARLIN HUNG Aug 03, 2016 09:45
[2016-08-03] MEDS: Aspirin Baby 81mg NG SCH (09:47)
[2016-08-03] MEDS: PredniSONE 20mg tab ORAL SCH (09:48)
--- NOTE | 2016-08-03 10:24 | General Progress Note ---
Assessment/Plan Assessment/Plan (1) Crohn's colitis ICD Codes: K50.10 - Crohn's disease of large intestine without complications SNOMED: 66085191 Qualifiers: Qualified Codes: K50.118 - Crohn's disease of large intestine with other complication (2) Anaphylactic reaction ICD Codes: T78.2XXA - Anaphylactic shock, unspecified, initial encounter SNOMED: [id number] Qualifiers: Qualified Codes: T78.2XXA - Anaphylactic shock, unspecified, initial encounter (3) Enteritis ICD Codes: K52.9 - Noninfective gastroenteritis and colitis, unspecified SNOMED: 99206376 Status: stable, progressing Assessment/Plan AP CT >> enteritis with ileus >> pt reported to have BM and passing gas diarrhea >> crohn's flare Crohn's medication Humira given once every two weeks. -------- symptomatic treatment pain mgmt abx per ID regular diet H2 fu labs Subjective Allergies: Coded Allergies: No Known Allergies (Unverified , 07/30/16) Subjective Feels OK no abd pain d/w pt re results ate well Objective Last 24 Hour Vital Signs Date Time Temp Pulse Resp B/P Pulse Ox O2 Delivery O2 Flow Rate FiO2 08/03/16 08:00 97.9 58 19 115/72 94 Room Air 08/03/16 04:00 98.1 91 20 107/73 95 Room Air 08/03/16 00:00 98.2 51 18 114/69 95 Room Air 08/02/16 20:00 98.2 58 20 128/77 98 Room Air 08/02/16 16:00 97.0 50 20 114/74 97 Room Air 08/02/16 12:00 97.0 50 18 104/68 96 Room Air Intake and Output 08/02/16 08/03/16 19:00 07:00 Intake Total 1110 ml 620 ml Balance 1110 ml 620 ml Intake Oral 1000 ml 420 ml IV Total 110 ml 200 ml # Voids 4 5 # Bowel Movements 1 1 Laboratory Tests 08/03/16 05:15: White Blood Count 7.2, Red Blood Count 4.12L, Hemoglobin 12.3L, Hematocrit 37.9L , Mean Corpuscular Volume 92, Mean Corpuscular Hemoglobin 29.9, Mean Corpuscular Hemoglobin Concent 32.5, Red Cell Distribution Width 13.0, Platelet Count 132L, Mean Platelet Volume 8.8, Neutrophils (%) (Auto) 65.9, Lymphocytes ( %) (Auto) 19.0L, Monocytes (%) (Auto) 14.3H, Eosinophils (%) (Auto) 0.5, Basophils (%) (Auto) 0.3, Sodium Level 145, Potassium Level 4.1, Chloride Level 108H, Carbon Dioxide Level 26, Anion Gap 11, Blood Urea Nitrogen 15, Creatinine 0.9, Estimat Glomerular Filtration Rate > 60, Glucose Level 87, Calcium Level 7.8L, Phosphorus Level 2.8, Magnesium Level 2.2, Total Bilirubin 0.3, Aspartate Amino Transf (AST/SGOT) 41H, Alanine Aminotransferase (ALT/SGPT) 103H, Alkaline Phosphatase 42, Total Protein 4.9L, Albumin 2.6L, Globulin 2.3, Albumin/ Globulin Ratio 1.1 Height (Feet): 5 Height (Inches): 8.00 Weight (Pounds): 220 Objective WDWN NAD NCAT supple, no neck mass CTA RRR Abd soft NT ND no edema non focal ZAYNAB NEVAREZ Aug 03, 2016 10:24
[2016-08-03 12:00] VITALS: BP 112/75
[2016-08-03 16:25] VITALS: BP 120/63
[2016-08-03] MEDS: Ertapenem 1 GM in NS 110 ML IVPB SCH (17:23)
--- NOTE | 2016-08-03 17:55 | Internal Med Progress Note ---
Subjective Date of Service: Aug 03, 2016 Physician Name Elvis Covington Attending Physician Bakari Moreno MD Current Medications Medications (Trade) Dose Ordered Sig/Sukhjinder Route PRN Reason Start Time Stop Time Status Last Admin Dose Admin Acetaminophen (Tylenol) 650 mg Q4H PRN ORAL FEVER 07/31/16 19:45 08/30/16 19:44 Acetaminophen (Tylenol) 650 mg Q4H PRN ORAL Mild Pain (Pain Scale 1-3) 07/31/16 19:45 08/30/16 19:44 Acetaminophen/ Hydrocodone Bitart ([place] 5/325) 1 tab Q6H PRN ORAL FOR PAIN 4-10 07/31/16 22:45 08/07/16 22:44 Aspirin (ASA) 81 mg DAILY NG 08/01/16 09:00 08/31/16 08:59 08/03/16 09:47 Diphenhydramine HCl (Benadryl) 25 mg Q6H PRN ORAL Itching/Pruritis 07/31/16 17:45 08/30/16 17:44 Diphenoxylate HCl/ Atropine (Lomotil) 2.5 mg Q6H PRN ORAL Diarrhea 07/31/16 17:45 08/30/16 17:44 08/03/16 14:56 Ertapenem 1 gm/ Sodium Chloride 110 ml @ 220 mls/hr Q24H IVPB 08/02/16 17:00 08/07/16 16:59 08/03/16 17:23 Lorazepam (Ativan) 1 mg Q4H PRN ORAL For Anxiety 07/31/16 19:45 08/07/16 19:44 Morphine Sulfate (Morphine Sulfate) 2 mg Q6H PRN IVP 4-6 PAIN UNRESPONSIVE TO NORCO 07/31/16 18:30 08/07/16 18:29 Ondansetron HCl (Zofran) 4 mg Q6H PRN IVP Nausea & Vomiting 07/31/16 17:45 08/30/16 17:44 Prednisone (predniSONE) 40 mg DAILY ORAL 08/01/16 09:00 08/31/16 08:59 08/03/16 09:48 Sodium Chloride (Sodium Chloride 1000ml bag) 1,000 ml @ 50 mls/hr Q20H IV 08/02/16 13:00 09/01/16 12:59 08/03/16 17:34 Temazepam 15 mg 15 mg HSPRN PRN ORAL Insomnia 08/01/16 11:45 08/08/16 11:44 Allergies: Coded Allergies: No Known Allergies (Unverified , 07/30/16) ROS Limited/Unobtainable: No Constitutional: Reports: no symptoms HEENT: Reports: no symptoms Cardiovascular: Reports: no symptoms Respiratory: Reports: no symptoms Gastrointestinal/Abdominal: Reports: no symptoms Genitourinary: Reports: no symptoms Neurologic/Psychiatric: Reports: no symptoms Subjective 61 YO M admitted with sepsis. Cover for Int Med-Dr Moreno. Objective Last Vital Signs Date Time Temp Pulse Resp B/P Pulse Ox O2 Delivery O2 Flow Rate FiO2 08/03/16 16:25 97.5 50 18 120/63 95 Room Air 07/31/16 07:48 2.0 Laboratory Tests Test 08/03/16 05:15 White Blood Count 7.2 K/UL (4.8-10.8) Red Blood Count 4.12 M/UL (4.70-6.10) L Hemoglobin 12.3 G/DL (14.2-18.0) L Hematocrit 37.9 % (42.0-52.0) L Mean Corpuscular Volume 92 FL (80-99) Mean Corpuscular Hemoglobin 29.9 PG (27.0-31.0) Mean Corpuscular Hemoglobin Concent 32.5 G/DL (32.0-36.0) Red Cell Distribution Width 13.0 % (11.6-14.8) Platelet Count 132 K/UL (150-450) L Mean Platelet Volume 8.8 FL (6.5-10.1) Neutrophils (%) (Auto) 65.9 % (45.0-75.0) Lymphocytes (%) (Auto) 19.0 % (20.0-45.0) L Monocytes (%) (Auto) 14.3 % (1.0-10.0) H Eosinophils (%) (Auto) 0.5 % (0.0-3.0) Basophils (%) (Auto) 0.3 % (0.0-2.0) Sodium Level 145 mEQ/L (135-145) Potassium Level 4.1 mEQ/L (3.4-4.9) Chloride Level 108 mEQ/L (98-107) H Carbon Dioxide Level 26 mEQ/L (20-30) Anion Gap 11 (5-15) Blood Urea Nitrogen 15 mg/dL (7-23) Creatinine 0.9 mg/dL (0.7-1.2) Estimat Glomerular Filtration Rate > 60 mL/min (>60) Glucose Level 87 mg/dL (74-106) Calcium Level 7.8 mg/dL (8.6-10.2) L Phosphorus Level 2.8 mg/dL (2.5-4.8) Magnesium Level 2.2 mg/dL (1.7-2.5) Total Bilirubin 0.3 mg/dL (0.0-1.2) Aspartate Amino Transf (AST/SGOT) 41 U/L (5-40) H Alanine Aminotransferase (ALT/SGPT) 103 U/L (3-41) H Alkaline Phosphatase 42 U/L (40-129) Total Protein 4.9 g/dL (6.6-8.7) L Albumin 2.6 g/dL (3.5-5.2) L Globulin 2.3 g/dL Albumin/Globulin Ratio 1.1 (1.0-2.7) Microbiology Date/Time Source Procedure Growth Status 08/01/16 20:45 Blood Blood Culture - Preliminary NO GROWTH AFTER 24 HOURS Resulted 08/01/16 20:30 Blood Blood Culture - Preliminary NO GROWTH AFTER 24 HOURS Resulted Intake and Output 08/02/16 08/03/16 19:00 07:00 Intake Total 1110 ml 620 ml Balance 1110 ml 620 ml Intake Oral 1000 ml 420 ml IV Total 110 ml 200 ml # Voids 4 5 # Bowel Movements 1 1 Objective General Appearance: WD/WN, alert, mild distress EENT: PERRL/EOMI, normal ENT inspection Neck: non-tender, normal alignment, supple Cardiovascular: normal peripheral pulses, normal rate, regular rhythm, no gallop/murmur, no JVD Respiratory/Chest: chest wall non-tender, lungs clear, normal breath sounds, no respiratory distress, no accessory muscle use Abdomen: normal bowel sounds, non tender, soft, no organomegaly, no mass Extremities: normal range of motion Neurologic: dredge pipeman II-XII grossly normal, no motor/sensory deficits Skin: normal pigmentation, warm/dry Assessment/Plan Problem List: (1) Leukocytosis Assessment & Plan: Due to sepsis. Improving on ertapenem per ID-Will require 10 more days @ home (2) Lactic acid acidosis (3) Sepsis Assessment & Plan: E. Coli. Cont ertapenem for now per ID Will require 2 weeks antibiotic per ID-Await PICC placement. Will need home health for IV antibiotic at home (4) Crohn's colitis Assessment & Plan: See GI note. See ID note concerning prednisone. On Humira- immunosuppressive (5) Gram-negative bacteremia Assessment & Plan: Cont zosyn per ID. Await ID and sensitivity (6) E coli bacteremia Assessment & Plan: Cont Imipenem Status: progressing Assessment/Plan D/C planning: PICC for IV antibiotic for 10 more days with home health ELVIS COVINGTON Aug 03, 2016 17:55
--- NOTE | 2016-08-03 19:00 | Pulmonology Progress Note ---
Assessment/Plan Problems: (1) Gram-negative bacteremia (2) Sepsis (3) Anaphylactic reaction (4) Enteritis (5) Crohn's colitis Assessment/Plan continue abx E coli in blood pansensitive repeat BC tolerating diet doing better. check electrolytes decrease IV fluids Subjective Gastrointestinal/Abdominal: Reports: bloating, diarrhea, nausea Allergies: Coded Allergies: No Known Allergies (Unverified , 07/30/16) Objective Last 24 Hour Vital Signs Date Time Temp Pulse Resp B/P Pulse Ox O2 Delivery O2 Flow Rate FiO2 08/03/16 16:25 97.5 50 18 120/63 95 Room Air 08/03/16 12:00 97.0 51 19 112/75 96 Room Air 08/03/16 08:00 97.9 58 19 115/72 94 Room Air 08/03/16 04:00 98.1 91 20 107/73 95 Room Air 08/03/16 00:00 98.2 51 18 114/69 95 Room Air 08/02/16 20:00 98.2 58 20 128/77 98 Room Air Intake and Output 08/02/16 08/03/16 19:00 07:00 Intake Total 1110 ml 620 ml Balance 1110 ml 620 ml Intake Oral 1000 ml 420 ml IV Total 110 ml 200 ml # Voids 4 5 # Bowel Movements 1 1 General Appearance: no acute distress HEENT: normocephalic, atraumatic, PERRL Respiratory/Chest: chest wall non-tender, decreased breath sounds, accessory muscle use Cardiovascular: normal peripheral pulses, normal rate, regular rhythm, no JVD Abdomen: hyperactive bowel sounds, hypoactive bowel sounds, distended, guarding , tender, rebound tenderness Genitourinary: normal external genitalia Extremities: no cyanosis Skin: no rash, no lesions Neurologic/Psychiatric: pig sticker II-XII grossly normal, no motor/sensory deficits Microbiology Date/Time Source Procedure Growth Status 08/01/16 20:45 Blood Blood Culture - Preliminary NO GROWTH AFTER 24 HOURS Resulted 08/01/16 20:30 Blood Blood Culture - Preliminary NO GROWTH AFTER 24 HOURS Resulted Laboratory Tests 08/03/16 05:15: White Blood Count 7.2, Red Blood Count 4.12L, Hemoglobin 12.3L, Hematocrit 37.9L , Mean Corpuscular Volume 92, Mean Corpuscular Hemoglobin 29.9, Mean Corpuscular Hemoglobin Concent 32.5, Red Cell Distribution Width 13.0, Platelet Count 132L, Mean Platelet Volume 8.8, Neutrophils (%) (Auto) 65.9, Lymphocytes ( %) (Auto) 19.0L, Monocytes (%) (Auto) 14.3H, Eosinophils (%) (Auto) 0.5, Basophils (%) (Auto) 0.3, Sodium Level 145, Potassium Level 4.1, Chloride Level 108H, Carbon Dioxide Level 26, Anion Gap 11, Blood Urea Nitrogen 15, Creatinine 0.9, Estimat Glomerular Filtration Rate > 60, Glucose Level 87, Calcium Level 7.8L, Phosphorus Level 2.8, Magnesium Level 2.2, Total Bilirubin 0.3, Aspartate Amino Transf (AST/SGOT) 41H, Alanine Aminotransferase (ALT/SGPT) 103H, Alkaline Phosphatase 42, Total Protein 4.9L, Albumin 2.6L, Globulin 2.3, Albumin/ Globulin Ratio 1.1 Current Medications Medications (Trade) Dose Ordered Sig/Sukhjinder Route PRN Reason Start Time Stop Time Status Last Admin Dose Admin Acetaminophen (Tylenol) 650 mg Q4H PRN ORAL FEVER 07/31/16 19:45 08/30/16 19:44 Acetaminophen (Tylenol) 650 mg Q4H PRN ORAL Mild Pain (Pain Scale 1-3) 07/31/16 19:45 08/30/16 19:44 Acetaminophen/ Hydrocodone Bitart ([place] 5/325) 1 tab Q6H PRN ORAL FOR PAIN 4-10 07/31/16 22:45 08/07/16 22:44 Aspirin (ASA) 81 mg DAILY NG 08/01/16 09:00 08/31/16 08:59 08/03/16 09:47 Diphenhydramine HCl (Benadryl) 25 mg Q6H PRN ORAL Itching/Pruritis 07/31/16 17:45 08/30/16 17:44 Diphenoxylate HCl/ Atropine (Lomotil) 2.5 mg Q6H PRN ORAL Diarrhea 07/31/16 17:45 08/30/16 17:44 08/03/16 14:56 Ertapenem 1 gm/ Sodium Chloride 110 ml @ 220 mls/hr Q24H IVPB 08/02/16 17:00 08/07/16 16:59 08/03/16 17:23 Lorazepam (Ativan) 1 mg Q4H PRN ORAL For Anxiety 07/31/16 19:45 08/07/16 19:44 Morphine Sulfate (Morphine Sulfate) 2 mg Q6H PRN IVP 4-6 PAIN UNRESPONSIVE TO NORCO 07/31/16 18:30 08/07/16 18:29 Ondansetron HCl (Zofran) 4 mg Q6H PRN IVP Nausea & Vomiting 07/31/16 17:45 08/30/16 17:44 Prednisone (predniSONE) 40 mg DAILY ORAL 08/01/16 09:00 08/31/16 08:59 08/03/16 09:48 Sodium Chloride (Sodium Chloride 1000ml bag) 1,000 ml @ 50 mls/hr Q20H IV 08/02/16 13:00 09/01/16 12:59 08/03/16 17:34 Temazepam 15 mg 15 mg HSPRN PRN ORAL Insomnia 08/01/16 11:45 08/08/16 11:44 ALICIA CHAVARRIA Aug 03, 2016 19:00
[2016-08-03 20:30] VITALS: BP 107/68
[2016-08-04] VITALS: BP 110/67
[2016-08-04 04:00] VITALS: BP 110/68
[2016-08-04 07:48] LABS: BASOPHILS % (AUTO) 0.7 % (0.0-2.0); EOSINOPHILS % (AUTO) 0.7 % (0.0-3.0); LYMPHOCYTES % (AUTO) 21.6 % (20.0-45.0); MEAN CORPUSCULAR HGB CONC 32.8 G/DL (32.0-36.0); MEAN CORPUSCULAR VOLUME 92 FL (80-99); MEAN PLATELET VOLUME 8.4 FL (6.5-10.1); MONOCYTES % (AUTO) 9.9 % (1.0-10.0); NEUTROPHILS % (AUTO) 67.2 % (45.0-75.0); PLATELET COUNT 141 K/UL (150-450); RED CELL DISTRIBUTION WIDTH 13.2 % (11.6-14.8); WHITE BLOOD COUNT 8.1 K/UL (4.8-10.8)
[2016-08-04 08:00] VITALS: BP 117/76
[2016-08-04 08:01] LABS: ANION GAP 8 (5-15); CARBON DIOXIDE 30 mEQ/L (20-30); CHLORIDE 106 mEQ/L (98-107); CREATININE 0.9 mg/dL (0.7-1.2); GLOMERULAR FILTRATION RATE > 60 mL/min (>60); HEMOLYSIS 7; POTASSIUM 4.3 mEQ/L (3.4-4.9); SODIUM 144 mEQ/L (135-145)
[2016-08-04] MEDS: Aspirin Baby 81mg NG SCH (09:00)
[2016-08-04] MEDS: PredniSONE 20mg tab ORAL SCH (10:05)
--- NOTE | 2016-08-04 10:19 | GI Progress Note ---
Assessment/Plan Problems: (1) Crohn's colitis ICD Codes: K50.10 - Crohn's disease of large intestine without complications SNOMED: 82651224 Qualifiers: Qualified Codes: K50.118 - Crohn's disease of large intestine with other complication (2) Anaphylactic reaction ICD Codes: T78.2XXA - Anaphylactic shock, unspecified, initial encounter SNOMED: 93266672 Qualifiers: Qualified Codes: T78.2XXA - Anaphylactic shock, unspecified, initial encounter (3) Enteritis ICD Codes: K52.9 - Noninfective gastroenteritis and colitis, unspecified SNOMED: 08388027 Status: stable Status Narrative Discussed with Dr. Olmedo. Assessment/Plan AP CT >> enteritis with ileus >> pt reported to have BM and passing gas diarrhea >> crohn's flare Crohn's medication Humira given once every two weeks. -------- ok for DC per GI standpoint symptomatic treatment pain mgmt abx per ID regular diet H2 fu labs Subjective Gastrointestinal/Abdominal: Reports: no symptoms Objective Last 24 Hour Vital Signs Date Time Temp Pulse Resp B/P Pulse Ox O2 Delivery O2 Flow Rate FiO2 08/04/16 08:00 97.9 50 20 117/76 95 Room Air 08/04/16 04:00 97.9 55 18 110/68 97 Room Air 08/04/16 00:00 98.1 46 18 110/67 96 Room Air 08/03/16 20:30 99.0 53 19 107/68 96 Room Air 08/03/16 16:25 97.5 50 18 120/63 95 Room Air 08/03/16 12:00 97.0 51 19 112/75 96 Room Air Intake and Output 08/03/16 08/04/16 19:00 07:00 Intake Total 2200 ml 880 ml Output Total 1020 ml Balance 2200 ml -140 ml Intake Oral 1940 ml 280 ml IV Total 260 ml 600 ml Output Urine Total 1020 ml # Voids 1 Laboratory Tests Test 08/04/16 06:40 White Blood Count 8.1 K/UL (4.8-10.8) Red Blood Count 4.30 M/UL (4.70-6.10) L Hemoglobin 12.9 G/DL (14.2-18.0) L Hematocrit 39.4 % (42.0-52.0) L Mean Corpuscular Volume 92 FL (80-99) Mean Corpuscular Hemoglobin 30.0 PG (27.0-31.0) Mean Corpuscular Hemoglobin Concent 32.8 G/DL (32.0-36.0) Red Cell Distribution Width 13.2 % (11.6-14.8) Platelet Count 141 K/UL (150-450) L Mean Platelet Volume 8.4 FL (6.5-10.1) Neutrophils (%) (Auto) 67.2 % (45.0-75.0) Lymphocytes (%) (Auto) 21.6 % (20.0-45.0) Monocytes (%) (Auto) 9.9 % (1.0-10.0) Eosinophils (%) (Auto) 0.7 % (0.0-3.0) Basophils (%) (Auto) 0.7 % (0.0-2.0) Sodium Level 144 mEQ/L (135-145) Potassium Level 4.3 mEQ/L (3.4-4.9) Chloride Level 106 mEQ/L (98-107) Carbon Dioxide Level 30 mEQ/L (20-30) Anion Gap 8 (5-15) Blood Urea Nitrogen 13 mg/dL (7-23) Creatinine 0.9 mg/dL (0.7-1.2) Estimat Glomerular Filtration Rate > 60 mL/min (>60) Glucose Level 91 mg/dL (74-106) Calcium Level 8.0 mg/dL (8.6-10.2) L Height (Feet): 5 Height (Inches): 8.00 Weight (Pounds): 220 General Appearance: no apparent distress, alert Cardiovascular: normal rate Respiratory/Chest: normal breath sounds, no respiratory distress Abdominal Exam: normal bowel sounds, non tender, soft Extremities: normal range of motion Lucía Ruiz N.P. Aug 04, 2016 10:19
[2016-08-04] MEDS ORDERED: Lidocaine 1% Plain 30 ml INJ SCH (10:45)
[2016-08-04] MEDS ORDERED: Heparin 2000 units/Ns 1000ml INJ ONE (10:45)
[2016-08-04] MEDS ORDERED: Sodium Bicarbonate 8.4% 50ml Inj IV SCH (10:45)
--- NOTE | 2016-08-04 12:43 | Diagnostic Imaging Report ---
Indications: Long-term central IV access required for intravenous therapy Technique: The procedure indications, risks, and alternatives were explained to the patient who understands and gives consent to proceed. Strict aseptic technique was utilized, including hand washing, use of hat and mask, use of sterile gown and gloves, sterile ultrasound gel and probe cover, prepping of left arm skin with 2% chlorhexidine solution, and application of full body sterile barrier over this area. Skin and subcutaneous soft tissues were infiltrated with 1% lidocaine and sodium bicarbonate. A small dermatotomy was made, through which the patent, adequate size left basilic vein was punctured percutaneously under direct sonographic guidance with a 21-gauge needle. Exchange was made over a 0.018 inch guidewire for a 5 [place] peel-away sheath. A natue Power-PICC 5 [place] dual lumen central venous catheter was cut to appropriate length, then advanced through the sheath over the guidewire under direct fluoroscopic guidance into the superior vena cava. Guidewire and sheath were removed. Both catheter ports were aspirated, then flushed with heparinized saline. Final image was obtained. Catheter was secured the skin with adhesive dressing. Patient tolerated procedure well without immediate complications. Total fluoroscopy time: 0.1 minutes. Dose-area product: 0.7 dGy-cm2 Findings: Final image demonstrates tip of the central venous catheter at the level of superior vena cava-right atrial junction, 42 cm in from the skin. Both ports aspirate and flush freely. IMPRESSION: Placement of peripherally inserted central venous catheter via left basilic vein, working well.
[2016-08-04] MEDS ORDERED: INVANZ1 G1 IM (13:42)
--- NOTE | 2016-08-04 13:47 | Pulmonology Progress Note ---
Assessment/Plan Problems: (1) Gram-negative bacteremia (2) Sepsis (3) Anaphylactic reaction (4) Enteritis (5) Crohn's colitis Assessment/Plan continue abx E coli in blood pansensitive repeat BC tolerating diet doing better. check electrolytes decrease IV fluids Subjective ROS Limited/Unobtainable: No Constitutional: Reports: anorexia, fatigue Gastrointestinal/Abdominal: Reports: bloating, blood in stool, diarrhea, vomiting Allergies: Coded Allergies: No Known Allergies (Unverified , 07/30/16) Objective Last 24 Hour Vital Signs Date Time Temp Pulse Resp B/P Pulse Ox O2 Delivery O2 Flow Rate FiO2 08/04/16 08:00 97.9 50 20 117/76 95 Room Air 08/04/16 04:00 97.9 55 18 110/68 97 Room Air 08/04/16 00:00 98.1 46 18 110/67 96 Room Air 08/03/16 20:30 99.0 53 19 107/68 96 Room Air 08/03/16 16:25 97.5 50 18 120/63 95 Room Air Intake and Output 08/03/16 08/04/16 19:00 07:00 Intake Total 2200 ml 880 ml Output Total 1020 ml Balance 2200 ml -140 ml Intake Oral 1940 ml 280 ml IV Total 260 ml 600 ml Output Urine Total 1020 ml # Voids 1 General Appearance: no acute distress HEENT: normocephalic, atraumatic, PERRL Respiratory/Chest: chest wall non-tender, normal breath sounds, no respiratory distress, no accessory muscle use Cardiovascular: normal peripheral pulses, normal rate, regular rhythm, no JVD Abdomen: hypoactive bowel sounds, distended, guarding, tender, rebound tenderness Genitourinary: normal external genitalia Extremities: no cyanosis Skin: no rash, no lesions Neurologic/Psychiatric: 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, no motor/sensory deficits Microbiology Date/Time Source Procedure Growth Status 08/01/16 20:45 Blood Blood Culture - Preliminary NO GROWTH AFTER 48 HOURS Resulted 08/01/16 20:30 Blood Blood Culture - Preliminary NO GROWTH AFTER 48 HOURS Resulted 08/03/16 15:03 Stool Clostridium difficile Toxin Assay - Final Complete Laboratory Tests 08/04/16 06:40: White Blood Count 8.1, Red Blood Count 4.30L, Hemoglobin 12.9L, Hematocrit 39.4L , Mean Corpuscular Volume 92, Mean Corpuscular Hemoglobin 30.0, Mean Corpuscular Hemoglobin Concent 32.8, Red Cell Distribution Width 13.2, Platelet Count 141L, Mean Platelet Volume 8.4, Neutrophils (%) (Auto) 67.2, Lymphocytes ( %) (Auto) 21.6, Monocytes (%) (Auto) 9.9, Eosinophils (%) (Auto) 0.7, Basophils (%) (Auto) 0.7, Sodium Level 144, Potassium Level 4.3, Chloride Level 106, Carbon Dioxide Level 30, Anion Gap 8, Blood Urea Nitrogen 13, Creatinine 0.9, Estimat Glomerular Filtration Rate > 60, Glucose Level 91, Calcium Level 8.0L Current Medications Medications (Trade) Dose Ordered Sig/Sukhjinder Route PRN Reason Start Time Stop Time Status Last Admin Dose Admin Acetaminophen (Tylenol) 650 mg Q4H PRN ORAL FEVER 07/31/16 19:45 08/30/16 19:44 Acetaminophen (Tylenol) 650 mg Q4H PRN ORAL Mild Pain (Pain Scale 1-3) 07/31/16 19:45 08/30/16 19:44 Acetaminophen/ Hydrocodone Bitart ([place] 5/325) 1 tab Q6H PRN ORAL FOR PAIN 4-10 07/31/16 22:45 08/07/16 22:44 Aspirin (ASA) 81 mg DAILY NG 08/01/16 09:00 08/31/16 08:59 08/03/16 09:47 Diphenhydramine HCl (Benadryl) 25 mg Q6H PRN ORAL Itching/Pruritis 07/31/16 17:45 08/30/16 17:44 Diphenoxylate HCl/ Atropine (Lomotil) 2.5 mg Q6H PRN ORAL Diarrhea 07/31/16 17:45 08/30/16 17:44 08/03/16 14:56 Ertapenem 1 gm/ Sodium Chloride 110 ml @ 220 mls/hr Q24H IVPB 08/02/16 17:00 08/07/16 16:59 08/03/16 17:23 Lidocaine HCl (Xylocaine 1% 30ml) 30 ml ONCE INJ 08/04/16 10:45 08/04/16 23:59 Lorazepam (Ativan) 1 mg Q4H PRN ORAL For Anxiety 07/31/16 19:45 08/07/16 19:44 Morphine Sulfate (Morphine Sulfate) 2 mg Q6H PRN IVP 4-6 PAIN UNRESPONSIVE TO NORCO 07/31/16 18:30 08/07/16 18:29 Ondansetron HCl (Zofran) 4 mg Q6H PRN IVP Nausea & Vomiting 07/31/16 17:45 08/30/16 17:44 Prednisone (predniSONE) 40 mg DAILY ORAL 08/01/16 09:00 08/31/16 08:59 08/04/16 10:05 Sodium Bicarbonate (Sodium Bicarbonate) 50 ml ONCE IV 08/04/16 10:45 08/04/16 23:59 Sodium Chloride (Sodium Chloride 1000ml bag) 1,000 ml @ 50 mls/hr Q20H IV 08/02/16 13:00 09/01/16 12:59 08/04/16 12:32 Temazepam 15 mg 15 mg HSPRN PRN ORAL Insomnia 08/01/16 11:45 08/08/16 11:44 ALICIA CHAVARRIA Aug 04, 2016 13:47
--- NOTE | 2016-08-04 16:11 | Infectious Diseases Prog Note ---
Assessment/Plan Assessment/Plan ASSESSMENT: 61 y/o male with: // Pansensitive E.coli bacteremia 4/4, m/l GI source - repeat BCx NGTD // Cough, possible bronchitis - improved - CXR: No evidence of acute cardiopulmonary disease - CT: Pulmonary bibasal subsegmental atelectasis // Severe sepsis SP - resolved lactic acidosis. Risk atypical infection on biologics // Possible ADR humira // h/o repeatedly negative QFT TB gold // Leukocytosis - resolved // Low grade fever - resolved // Crohn's disease, on humira, steroids ?exacerbated - CT A/P: Small bowel findings favor enteritis with ileus. Partial obstruction not excludable. No other evidence of acute abdominopelvic disease // TCP ?zosyn // Right non-obstructive nephrolithiasis // SP right DONAVON ~4 weeks - no evidence of infection // NKDA // Full Code PLAN: - DC planning for IV rocephin + PO flagyl x9 more days ( ABX d# ). Recommend IV ABX at discharge since immunosuppressed ( 08/02 SP zosyn d# 3 ) - steroids per GI, consider steroid-sparing agent - f/u repeat BCx to document clearance - f/u coccidioides serology - monitor CBC, temperatures - monitor BMP - monitor CXR d/w returned case inspector Subjective Allergies: Coded Allergies: No Known Allergies (Unverified , 07/30/16) Subjective remains afebrile without leukocytosis repeat BCx NGTD SP PICC, for possible DC Objective Vital Signs Last 24 Hour Vital Signs Date Time Temp Pulse Resp B/P Pulse Ox O2 Delivery O2 Flow Rate FiO2 08/04/16 08:00 97.9 50 20 117/76 95 Room Air 08/04/16 04:00 97.9 55 18 110/68 97 Room Air 08/04/16 00:00 98.1 46 18 110/67 96 Room Air 08/03/16 20:30 99.0 53 19 107/68 96 Room Air 08/03/16 16:25 97.5 50 18 120/63 95 Room Air Height (Feet): 5 Height (Inches): 8.00 Weight (Pounds): 220 General Appearance: no acute distress Respiratory/Chest: no respiratory distress Cardiovascular: normal rate, regular rhythm Abdomen: normal bowel sounds, soft, non tender, distended Microbiology Date/Time Source Procedure Growth Status 08/01/16 20:45 Blood Blood Culture - Preliminary NO GROWTH AFTER 48 HOURS Resulted 08/01/16 20:30 Blood Blood Culture - Preliminary NO GROWTH AFTER 48 HOURS Resulted 08/03/16 15:03 Stool Clostridium difficile Toxin Assay - Final Complete Laboratory Tests Test 08/04/16 06:40 White Blood Count 8.1 K/UL (4.8-10.8) Red Blood Count 4.30 M/UL (4.70-6.10) L Hemoglobin 12.9 G/DL (14.2-18.0) L Hematocrit 39.4 % (42.0-52.0) L Mean Corpuscular Volume 92 FL (80-99) Mean Corpuscular Hemoglobin 30.0 PG (27.0-31.0) Mean Corpuscular Hemoglobin Concent 32.8 G/DL (32.0-36.0) Red Cell Distribution Width 13.2 % (11.6-14.8) Platelet Count 141 K/UL (150-450) L Mean Platelet Volume 8.4 FL (6.5-10.1) Neutrophils (%) (Auto) 67.2 % (45.0-75.0) Lymphocytes (%) (Auto) 21.6 % (20.0-45.0) Monocytes (%) (Auto) 9.9 % (1.0-10.0) Eosinophils (%) (Auto) 0.7 % (0.0-3.0) Basophils (%) (Auto) 0.7 % (0.0-2.0) Sodium Level 144 mEQ/L (135-145) Potassium Level 4.3 mEQ/L (3.4-4.9) Chloride Level 106 mEQ/L (98-107) Carbon Dioxide Level 30 mEQ/L (20-30) Anion Gap 8 (5-15) Blood Urea Nitrogen 13 mg/dL (7-23) Creatinine 0.9 mg/dL (0.7-1.2) Estimat Glomerular Filtration Rate > 60 mL/min (>60) Glucose Level 91 mg/dL (74-106) Calcium Level 8.0 mg/dL (8.6-10.2) L Current Medications Medications (Trade) Dose Ordered Sig/Sukhjinder Route PRN Reason Start Time Stop Time Status Last Admin Dose Admin Acetaminophen (Tylenol) 650 mg Q4H PRN ORAL FEVER 07/31/16 19:45 08/30/16 19:44 Acetaminophen (Tylenol) 650 mg Q4H PRN ORAL Mild Pain (Pain Scale 1-3) 07/31/16 19:45 08/30/16 19:44 Acetaminophen/ Hydrocodone Bitart ([place] 5/325) 1 tab Q6H PRN ORAL FOR PAIN 4-10 07/31/16 22:45 08/07/16 22:44 Aspirin (ASA) 81 mg DAILY NG 08/01/16 09:00 08/31/16 08:59 08/03/16 09:47 Diphenhydramine HCl (Benadryl) 25 mg Q6H PRN ORAL Itching/Pruritis 07/31/16 17:45 08/30/16 17:44 Diphenoxylate HCl/ Atropine (Lomotil) 2.5 mg Q6H PRN ORAL Diarrhea 07/31/16 17:45 08/30/16 17:44 08/03/16 14:56 Ertapenem 1 gm/ Sodium Chloride 110 ml @ 220 mls/hr Q24H IVPB 08/02/16 17:00 08/07/16 16:59 08/03/16 17:23 Lidocaine HCl (Xylocaine 1% 30ml) 30 ml ONCE INJ 08/04/16 10:45 08/04/16 23:59 Lorazepam (Ativan) 1 mg Q4H PRN ORAL For Anxiety 07/31/16 19:45 08/07/16 19:44 Morphine Sulfate (Morphine Sulfate) 2 mg Q6H PRN IVP 4-6 PAIN UNRESPONSIVE TO NORCO 07/31/16 18:30 08/07/16 18:29 Ondansetron HCl (Zofran) 4 mg Q6H PRN IVP Nausea & Vomiting 07/31/16 17:45 08/30/16 17:44 Prednisone (predniSONE) 40 mg DAILY ORAL 08/01/16 09:00 08/31/16 08:59 08/04/16 10:05 Sodium Bicarbonate (Sodium Bicarbonate) 50 ml ONCE IV 08/04/16 10:45 08/04/16 23:59 Sodium Chloride (Sodium Chloride 1000ml bag) 1,000 ml @ 50 mls/hr Q20H IV 08/02/16 13:00 09/01/16 12:59 08/04/16 12:32 Temazepam 15 mg 15 mg HSPRN PRN ORAL Insomnia 08/01/16 11:45 08/08/16 11:44 DARLIN HUNG Aug 04, 2016 16:11
[2016-08-04 16:14] VITALS: BP 113/72
[2016-08-04] MEDS: Ertapenem 1 GM in NS 110 ML IVPB SCH (16:24)
--- NOTE | 2016-08-04 19:34 | Internal Med Progress Note ---
Subjective Date of Service: Aug 04, 2016 Physician Name Lina Covington Attending Physician Bakari Moreno MD Current Medications Medications (Trade) Dose Ordered Sig/Sukhjinder Route PRN Reason Start Time Stop Time Status Last Admin Dose Admin Acetaminophen (Tylenol) 650 mg Q4H PRN ORAL FEVER 07/31/16 19:45 08/30/16 19:44 Acetaminophen (Tylenol) 650 mg Q4H PRN ORAL Mild Pain (Pain Scale 1-3) 07/31/16 19:45 08/30/16 19:44 Acetaminophen/ Hydrocodone Bitart ([place] 5/325) 1 tab Q6H PRN ORAL FOR PAIN 4-10 07/31/16 22:45 08/07/16 22:44 Aspirin (ASA) 81 mg DAILY NG 08/01/16 09:00 08/31/16 08:59 08/03/16 09:47 Diphenhydramine HCl (Benadryl) 25 mg Q6H PRN ORAL Itching/Pruritis 07/31/16 17:45 08/30/16 17:44 Diphenoxylate HCl/ Atropine (Lomotil) 2.5 mg Q6H PRN ORAL Diarrhea 07/31/16 17:45 08/30/16 17:44 08/03/16 14:56 Ertapenem 1 gm/ Sodium Chloride 110 ml @ 220 mls/hr Q24H IVPB 08/02/16 17:00 08/07/16 16:59 08/04/16 16:24 Lidocaine HCl (Xylocaine 1% 30ml) 30 ml ONCE INJ 08/04/16 10:45 08/04/16 23:59 Lorazepam (Ativan) 1 mg Q4H PRN ORAL For Anxiety 07/31/16 19:45 08/07/16 19:44 Morphine Sulfate (Morphine Sulfate) 2 mg Q6H PRN IVP 4-6 PAIN UNRESPONSIVE TO NORCO 07/31/16 18:30 08/07/16 18:29 Ondansetron HCl (Zofran) 4 mg Q6H PRN IVP Nausea & Vomiting 07/31/16 17:45 08/30/16 17:44 Prednisone (predniSONE) 40 mg DAILY ORAL 08/01/16 09:00 08/31/16 08:59 08/04/16 10:05 Sodium Bicarbonate (Sodium Bicarbonate) 50 ml ONCE IV 08/04/16 10:45 08/04/16 23:59 Sodium Chloride (Sodium Chloride 1000ml bag) 1,000 ml @ 50 mls/hr Q20H IV 08/02/16 13:00 09/01/16 12:59 08/04/16 12:32 Temazepam 15 mg 15 mg HSPRN PRN ORAL Insomnia 08/01/16 11:45 08/08/16 11:44 Allergies: Coded Allergies: No Known Allergies (Unverified , 07/30/16) ROS Limited/Unobtainable: No Constitutional: Reports: no symptoms HEENT: Reports: no symptoms Cardiovascular: Reports: no symptoms Respiratory: Reports: no symptoms Gastrointestinal/Abdominal: Reports: no symptoms Genitourinary: Reports: no symptoms Neurologic/Psychiatric: Reports: no symptoms Subjective 61 YO M admitted with sepsis. Cover for Int Skip-Dr Moreno. Objective Last Vital Signs Date Time Temp Pulse Resp B/P Pulse Ox O2 Delivery O2 Flow Rate FiO2 08/04/16 16:14 98.1 63 19 113/72 93 Room Air 07/31/16 07:48 2.0 Laboratory Tests Test 08/04/16 06:40 White Blood Count 8.1 K/UL (4.8-10.8) Red Blood Count 4.30 M/UL (4.70-6.10) L Hemoglobin 12.9 G/DL (14.2-18.0) L Hematocrit 39.4 % (42.0-52.0) L Mean Corpuscular Volume 92 FL (80-99) Mean Corpuscular Hemoglobin 30.0 PG (27.0-31.0) Mean Corpuscular Hemoglobin Concent 32.8 G/DL (32.0-36.0) Red Cell Distribution Width 13.2 % (11.6-14.8) Platelet Count 141 K/UL (150-450) L Mean Platelet Volume 8.4 FL (6.5-10.1) Neutrophils (%) (Auto) 67.2 % (45.0-75.0) Lymphocytes (%) (Auto) 21.6 % (20.0-45.0) Monocytes (%) (Auto) 9.9 % (1.0-10.0) Eosinophils (%) (Auto) 0.7 % (0.0-3.0) Basophils (%) (Auto) 0.7 % (0.0-2.0) Sodium Level 144 mEQ/L (135-145) Potassium Level 4.3 mEQ/L (3.4-4.9) Chloride Level 106 mEQ/L (98-107) Carbon Dioxide Level 30 mEQ/L (20-30) Anion Gap 8 (5-15) Blood Urea Nitrogen 13 mg/dL (7-23) Creatinine 0.9 mg/dL (0.7-1.2) Estimat Glomerular Filtration Rate > 60 mL/min (>60) Glucose Level 91 mg/dL (74-106) Calcium Level 8.0 mg/dL (8.6-10.2) L Microbiology Date/Time Source Procedure Growth Status 08/01/16 20:45 Blood Blood Culture - Preliminary NO GROWTH AFTER 48 HOURS Resulted 08/01/16 20:30 Blood Blood Culture - Preliminary NO GROWTH AFTER 48 HOURS Resulted 08/03/16 15:03 Stool Clostridium difficile Toxin Assay - Final Complete Intake and Output 08/03/16 08/04/16 19:00 07:00 Intake Total 2200 ml 880 ml Output Total 1020 ml Balance 2200 ml -140 ml Intake Oral 1940 ml 280 ml IV Total 260 ml 600 ml Output Urine Total 1020 ml # Voids 1 Objective General Appearance: WD/WN, alert, mild distress EENT: PERRL/EOMI, normal ENT inspection Neck: non-tender, normal alignment, supple Cardiovascular: normal peripheral pulses, normal rate, regular rhythm, no gallop/murmur, no JVD Respiratory/Chest: chest wall non-tender, lungs clear, normal breath sounds, no respiratory distress, no accessory muscle use Abdomen: normal bowel sounds, non tender, soft, no organomegaly, no mass Extremities: normal range of motion 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 D/C ertapenem copay with insurance too expensive per service planner. Start IV rociphin and oral flagyl per ID-Will require 10 more days @ home. Home health arranged with [facility] (2) Lactic acid acidosis (3) Sepsis Assessment & Plan: E. Coli. D/C ertapenem due to high insurance copayment; start IV rocephin and oral flagyl per ID Will require 2 weeks antibiotic per ID -Await PICC placement. Will need home health for IV antibiotic at home; home health via [facility] (4) Crohn's colitis Assessment & Plan: See GI note. See ID note concerning prednisone. On Humira- immunosuppressive (5) Gram-negative bacteremia Assessment & Plan: Cont rocephin and flagyl per ID. (6) E coli bacteremia Assessment & Plan: Cont antibiotic per ID Assessment/Plan D/C planning: PICC for IV antibiotic for 10 more days with home health- [facility] LINA COVINGTON Aug 04, 2016 19:33
--- NOTE | 2016-08-04 19:40 | Discharge Summary ---
Discharge Summary Hospital Course Date of Admission Jul 30, 2016 at 23:43 Date of Discharge Admitting Diagnosis anaphylaxis/abdominal pain HPI Stephanie Brooks is a 61 year old male who was admitted on Jul 30, 2016 at 23:43 for Anaphylaxis,Abdominal Pain Hospital Course Dictated for [facility] Skip-Dr Moreno no. [id number]. Discharge Discharge Disposition Patient was discharged to Home with Home Health(06) Discharge Diagnoses: LINA COVINGTON Aug 04, 2016 19:40
--- NOTE | 2016-08-05 04:27 | Discharge Summary ---
DATE OF ADMISSION: 07/30/2016 DATE OF DISCHARGE: 08/04/2016 ADMITTING DIAGNOSES: 1. Fever. 2. Lactic acidosis. 3. Leukocytosis. 4. History of Crohn disease. DISCHARGE DIAGNOSES: 1. Sepsis. 2. Lactic acidosis. 3. Leukocytosis. 4. Crohn disease. HOSPITAL COURSE BY PROBLEM LIST: 1. Sepsis. An Infectious Disease consultation was obtained with Dr. Valdez. The patient's blood culture grew out Escherichia coli in 2/2 bottles. The patient was started initially on ertapenem given the patient's history of Crohn disease. Ertapenem was not available on discharge secondary to high co-pay cost. Home Health has been arranged with the [facility]. The patient is to receive Rocephin intravenously upon discharge for 10 additional days along with oral Flagyl per Infectious Disease. The patient is to follow up with his primary care physician in one week. 2. Lactic acidosis, resolved. 3. Leukocytosis, resolved. 4. Crohn disease, stable. DISCHARGE MEDICATIONS: Please refer to discharge medication list. DISCHARGE INSTRUCTIONS: 1. The patient is discharged home today, 08/04/2016. 2. The patient is to receive home health by [facility] for infusion of intravenous Rocephin daily. 3. The patient is to follow up with his primary care physician in one week. Elvis Avina M.D. DR: JESS JOB#: [id number] CC:
== END 2016-08-04 18:45 | disposition home health service (06) | DRG 872 ==
LOC: EDBD 22:48 → EMR 22:59 → 2W 23:43 → EDBEDREQSVC 07-31 00:57 → EDBEDREQ 07-31 00:58 → 3E 07-31 18:45
PROC: 02HV33Z Insertion of Infusion Device into Superior Vena Cava, Percutaneous Approach (ICD-10-PCS; principal; 2016-08-04)
DX: A41.51 Sepsis due to Escherichia coli [E. coli] (principal); K50.90 Crohn's disease, unspecified, without complications; K56.7 Ileus, unspecified; R65.20 Severe sepsis without septic shock; Z90.49 Acquired absence of other specified parts of digestive tract; N20.0 Calculus of kidney; Z96.641 Presence of right artificial hip joint; T39.4X5A Adverse effect of antirheumatics, not elsewhere classified, initial encounter
CPT/HCPCS: 36415; 36569; 71010; 74177; 76937; 80048; 80053; 80300; 80329; 81001; 82248; 82550; 82962; 83605; 83735; 83880; 84100; 84443; 84484; 85007; 85025; 86635; 87040; 87081; 87086; 87181; 87493; 93005